=== PATIENT | female | born 1935 | race Caucasian/White ===

== ENCOUNTER → 2016-05-02 | Outpatient (CLI) | payer MEDICARE, OTHER ==
[2016-05-02 08:34] LABS: APPEARANCE,URINE CLEAR; BILIRUBIN,URINE NEGATIVE (NEGATIVE); GLUCOSE, URINE NEGATIVE (NEGATIVE); KETONES,URINE NEGATIVE (NEGATIVE); LEUKOCYTE ESTERASE,URINE SMALL (NEGATIVE); NITRITE,URINE NEGATIVE (NEGATIVE); PROTEIN,URINE NEGATIVE (NEGATIVE); URINE SPECIFIC GRAVITY 1.006; UROBILINOGEN,URINE NEGATIVE mg/dL (<2.0)
[2016-05-02 08:35] LABS: ABSOLUTE EOSINOPHILS # (AUTO) 0.2 10^3/uL (0.0-0.6); ABSOLUTE LYMPHOCYTES (AUTO) 1.4 10^3/uL (0.5-4.7); ABSOLUTE MONOCYTES (AUTO) 0.4 10^3/uL (0.1-1.4); ABSOLUTE NEUT (AUTO) 3.9 10^3/uL (1.7-8.2); BASOPHILS % (AUTO) 0.6 % (0-2); EOSINOPHILS % (AUTO) 2.7 % (0-6); HEMATOCRIT 36.3 % (36.0-47.0); HEMOGLOBIN 12.1 g/dL (12.0-15.5); LYMPHOCYTES % (AUTO) 24.2 % (13-45); MEAN CORPUSCULAR HEMOGLOBIN 28.9 pg (27.0-33.4); MEAN CORPUSCULAR HGB CONC 33.2 g/dL (32.0-36.0); MEAN CORPUSCULAR VOLUME 87 fl (80-97); MONOCYTES % (AUTO) 7.3 % (3-13); RED BLOOD COUNT 4.17 10^6/uL (3.72-5.28); RED CELL DISTRIBUTION WIDTH 13.1 % (11.5-14.0); SEGMENTED NEUTROPHILS % (AUTO) 65.2 % (42-78); WHITE BLOOD COUNT 5.9 10^3/uL (4.0-10.5)
[2016-05-02 09:02] LABS: ALANINE AMINOTRANSFERASE 27 U/L (9-52); ALBUMIN 4.2 g/dL (3.5-5.0); ALKALINE PHOSPHATASE 58 U/L (38-126); ANION GAP 9 (5-19); ASPARTATE AMINO TRANSFERASE 23 U/L (14-36); BILIRUBIN,TOTAL 0.7 mg/dL (0.2-1.3); BLOOD UREA NITROGEN 15 mg/dL (7-20); CARBON DIOXIDE 31 mmol/L (22-30); CHLORIDE 100 mmol/L (98-107); CHOLESTEROL 211.81 mg/dL (0-200); CREATININE RESULT 1.29 mg/dL (0.52-1.25); Direct HDL 57 mg/dL (>40); GLUCOSE 86 mg/dL (75-110); POTASSIUM 4.3 mmol/L (3.6-5.0); SODIUM 140.3 mmol/L (137-145); TOTAL PROTEIN 7.5 g/dL (6.3-8.2); TRIGLYCERIDES 249 mg/dL (<150); URIC ACID 6.7 mg/dL (2.5-7.5)
[2016-05-02 09:13] LABS: DIRECT LDL 114 mg/dL (<100); VLDL CHOLESTEROL 49.8 mg/dL (10-31)
[2016-05-02 09:27] LABS: THYROID STIMULATING HORMONE 2.21 uIU/mL (0.47-4.68)
[2016-05-03 11:39] LABS: CREATININE URINE 61.8 mg/dL (Not Estab.)
[2016-05-03 11:48] LABS: MICROALBUMIN URINE <3.0 ug/mL (Not Estab.)
== END ==
LOC: OD 07:19
PROVIDERS: ATTEND Internal Medicine
DX: I10 Essential (primary) hypertension (principal)
CPT/HCPCS: 36415; 80053; 80061; 81001; 82043; 82570; 84439; 84443; 84550; 85025

== ENCOUNTER 2017-01-15 08:20 | Emergency (ER) | payer MEDICARE, OTHER ==
[2017-01-15 09:02] LABS: APPEARANCE,URINE CLOUDY; BILIRUBIN,URINE NEGATIVE (NEGATIVE); GLUCOSE, URINE NEGATIVE (NEGATIVE); KETONES,URINE NEGATIVE (NEGATIVE); LEUKOCYTE ESTERASE,URINE LARGE (NEGATIVE); NITRITE,URINE NEGATIVE (NEGATIVE); PROTEIN,URINE 30 mg/dL (NEGATIVE); URINE SPECIFIC GRAVITY 1.008; UROBILINOGEN,URINE NEGATIVE mg/dL (<2.0)
[2017-01-15] MEDS ORDERED: CIPROFLOXACIN HCL 500 MG TABLET PO ONE (09:24)
--- NOTE | 2017-01-15 09:27 | ER Document Report ---
ED GI/ - General Chief Complaint: Pain With Urination Stated Complaint: POSSIBLE UTI Time Seen by Provider: 01/15/17 08:51 Mode of Arrival: Ambulatory Information source: Patient Notes: 81-year-old female presented to ED for urinary frequency urgency and discomfort. She states that usually when she feels like this she has a urinary tract infection. She states that she cannot quivers when she urinates. And this is her normal symptom for UTI. States that Dr. Cruz always gives her Cipro but she has not had it for more than a year. TRAVEL OUTSIDE OF THE [place] IN LAST 30 DAYS: No - HPI Patient complains to provider of: Other - Urinary urgency frequency and burning for 2 days Onset: Other - 2 days Timing/Duration: Gradual Quality of pain: Burning Severity at maximum: Mild Severity in ED: Mild Pain Level: 1 Associated symptoms: Urinary frequency, Urinary urgency, Other - Burning with urination Exacerbated by: Other - Urination Relieved by: Denies Similar symptoms previously: Yes Recently seen / treated by doctor: No - Related Data Allergies/Adverse Reactions: lisinopril [Lisinopril] Allergy (Verified 12/26/13 21:10) niacin Allergy (Verified 01/15/17 08:23) nitrofurantoin [From Macrobid] Allergy (Verified 12/26/13 21:10) nitrofurantoin macrocrystalline [From Macrobid] Allergy (Verified 12/26/13 21:10 ) Sulfa (Sulfonamide Antibiotics) Allergy (Verified 12/26/13 21:10) Past Medical History - General Information source: Patient - Social History Smoking Status: Never Smoker Cigarette use (# per day): No Chew tobacco use (# tins/day): No Smoking Education Provided: No Frequency of alcohol use: None Drug Abuse: None Lives with: Family Family History: CAD, Hyperlipidemia, Hypertension Patient has suicidal ideation: No Patient has homicidal ideation: No - Past Medical History Cardiac Medical History: Reports: Hx Hypercholesterolemia, Hx Hypertension, Other - Pericarditis with a pericardial window, pacemaker Pulmonary Medical History: Reports: None EENT Medical History: Reports: None Neurological Medical History: Reports: Other - Vertigo Endocrine Medical History: Reports: None Renal/ Medical History: Reports: Other - Urination Malignancy Medical History: Reports: Hx Skin Cancer GI Medical History: Reports: Hx Gastroesophageal Reflux Disease, Hx Colonoscopy , Hx Endoscopy, Other - Sluggish esophagus Musculoskeltal Medical History: Reports Hx Arthritis, Reports Hx Musculoskeletal Trauma Skin Medical History: Reports None Psychiatric Medical History: Reports: Other - Stressed Traumatic Medical History: Reports: Hx Fractures - Ankle Infectious Medical History: Reports: None Past Surgical History: Reports: Hx Cardiac Surgery - Pericardial window, Hx Cholecystectomy, Hx Pacemaker, Other - Cataract, skin cancer removed - Immunizations Immunizations up to date: Yes Hx Pneumococcal Vaccination: 04/03/12 Review of Systems - Review of Systems Constitutional: No symptoms reported EENT: No symptoms reported Cardiovascular: No symptoms reported Respiratory: No symptoms reported Gastrointestinal: No symptoms reported Genitourinary: Burning, Frequency, Urgency Female Genitourinary: No symptoms reported Musculoskeletal: No symptoms reported Skin: No symptoms reported Hematologic/Lymphatic: No symptoms reported Neurological/Psychological: No symptoms reported -: Yes All other systems reviewed and negative Physical Exam - Vital signs Vitals: Temp Pulse Resp BP Pulse Ox 97.4 F 83 20 177/92 H 97 01/15/17 08:23 01/15/17 08:23 01/15/17 08:23 01/15/17 08:23 01/15/17 08:23 Interpretation: Normal - General General appearance: Appears well, Alert - HEENT Head: Normocephalic, Atraumatic Eyes: Normal Pupils: PERRL - Respiratory Respiratory status: No respiratory distress Chest status: Nontender Breath sounds: Normal Chest palpation: Normal - Cardiovascular Rhythm: Regular Heart sounds: Normal auscultation Murmur: No - Abdominal Inspection: Normal Distension: No distension Bowel sounds: Normal Tenderness: Nontender. No: Tender Organomegaly: No organomegaly - Back Back: Normal, Nontender - Extremities General upper extremity: Normal inspection, Nontender, Normal color, Normal ROM , Normal temperature General lower extremity: Normal inspection, Nontender, Normal color, Normal ROM , Normal temperature, Normal weight bearing. No: Shana's sign - Neurological Neuro grossly intact: Yes Cognition: Normal Orientation: AAOx4 Liberal Coma Scale Eye Opening: Spontaneous Liberal Coma Scale Verbal: Oriented Liberal Coma Scale Motor: Obeys Commands Liberal Coma Scale Total: 15 Speech: Normal Motor strength normal: LUE, RUE, LLE, RLE Sensory: Normal - Psychological Associated symptoms: Normal affect, Normal mood - Skin Skin Temperature: Warm Skin Moisture: Dry Skin Color: Normal Course - Re-evaluation Re-evalutation: 01/15/17 20:50 Urine positive for urinary tract infection. Patient was treated with Cipro in the emergency room and sent home with a prescription for Cipro. Patient was encouraged to follow-up with Dr. Cruz tomorrow the next day to ensure that her symptoms are improving. Patient has been afebrile in the emergency room. - Vital Signs Vital signs: Temp Pulse Resp BP Pulse Ox 97.5 F 79 20 169/83 H 97 01/15/17 09:54 01/15/17 09:54 01/15/17 09:54 01/15/17 09:54 01/15/17 09:54 - Laboratory Laboratory results interpreted by me: 01/15/17 08:25 Urine Protein 30 H Urine Blood LARGE H Ur Leukocyte Esterase LARGE H Discharge - Discharge Clinical Impression: UTI (urinary tract infection) Qualifiers: Urinary tract infection type: site unspecified Hematuria presence: with hematuria Qualified Code(s): N39.0 - Urinary tract infection, site not specified Condition: Stable Disposition: HOME, SELF-CARE Additional Instructions: URINARY TRACT INFECTION: Your evaluation indicates that you have a urinary tract infection. This is due to germs growing in the bladder. This is a common problem. This infection usually responds quickly to antibiotics. Your antibiotic should be taken exactly as prescribed. Drink plenty of fluids -- three to four quarts a day. Occasionally, a bladder anesthetic will be prescribed to help stop the feeling of urgency until the antibiotic has a chance to clear the infection. This may cause your urine to be dark orange. Certain urine infections require a culture. If the doctor obtained a culture, the results will be back in two days. You should call to see if a change in treatment is needed. A repeat urinalysis after you finish treatment is often recommended. The physician will let you know if further testing is required. Call the doctor if you develop fever, chills, flank pain, inability to urinate, or blood in the urine. CIPROFLOXACIN: You have been given an antibacterial agent, ciprofloxacin (Cipro). This medicine is not related to the penicillins, sulfas, cephalosporins, or tetracyclines. It is often given to patients who are allergic to these drugs. It has been chosen for you either because other drugs are not appropriate, or because of the nature of your problem. Cipro should not be taken with antacids, as these can decrease its effectiveness. It can be taken without regard to meals. CIPRO SHOULD NOT BE TAKEN BY CHILDREN, NURSING WOMEN, OR WOMEN. Although Cipro is usually well-tolerated, common side effects can include nausea and diarrhea. Contact your doctor if you experience any unusual symptoms while on this medication, such as joint pain or swelling, shortness of breath, wheezing, faintness, or hives. FOLLOW-UP CARE: If you have been referred to a physician for follow-up care, call the physician s office for an appointment as you were instructed or within the next two days. If you experience worsening or a significant change in your symptoms, notify the physician immediately or return to the Emergency Department at any time for re-evaluation. Prescriptions: Ciprofloxacin HCl [Cipro 500 mg Tablet] 500 mg PO BID #20 tablet Referrals: ANGLE CRUZ MD [Primary Care Provider] - Follow up tomorrow
[2017-01-15 10:03] VITALS: BP 169/83
--- NOTE | 2017-01-15 10:06 | RADIOLOGY REPORT (SQ) ---
EXAM DESCRIPTION: CT LTD RENAL STONE PROTOCOL ON COMPLETED DATE/TIME: 01/15/2017 9:48 am REASON FOR STUDY: flank pain hematuria COMPARISON: CT abdomen pelvis 11/28/2009 CT chest 04/22/2015 TECHNIQUE: CT scan of the abdomen and pelvis performed without intravenous or oral contrast. Images reviewed with lung, soft tissue, and bone windows. Reconstructed coronal and sagittal MPR images revi ewed. All images stored on PACS. All CT scanners at this facility use dose modulation, iterative reconstruction, and/or weight based d osing when appropriate to reduce radiation dose to as low as reasonably achievable (ALARA). [facility]: Dose Right [facility]: CareDose [facility]: Dose Right [facility]: Teradose 4D [facility]: Smart The Resumator RADIATION DOSE: Up-to-date CT equipment and radiation dose reduction techniques were employed. CTDIv ol: 11.6 mGy. DLP: 608 mGy-cm.mGy. LIMITATIONS: None. FINDINGS: LOWER CHEST: There is having pericardial calcification without pericardial effusion, simil ar compared to previous exams. NON-CONTRASTED LIVER, SPLEEN, ADRENALS: Evaluation limited by lack of IV contrast. No identified sign ificant masses. PANCREAS: No masses. No peripancreatic inflammatory changes. GALLBLADDER: Surgically absent RIGHT KIDNEY AND URETER: No suspicious masses. Assessment limited by lack of IV contrast. No signif icant calcifications. No hydronephrosis or hydroureter. LEFT KIDNEY AND URETER: No suspicious masses. Assessment limited by lack of IV contrast. No signifi cant calcifications. No hydronephrosis or hydroureter. AORTA AND RETROPERITONEUM: Heavy atherosclerotic arterial vascular calcification without abdominal ao rtic aneurysm. BOWEL AND PERITONEAL CAVITY: No obvious masses or inflammatory changes. No free fluid. No oral contr ast. APPENDIX: Normal. PELVIS, BLADDER, AND ABDOMINAL WALL:No abnormal masses. No free fluid. Bladder normal. Uterus, ovari es unremarkable. BONES: No significant findings. OTHER: No other significant finding. IMPRESSION: No CT findings to explain history of hematuria. COMMENT: Quality ID # [id number]: Final reports with documentation of one or more dose reduction techniques (e.g., Automated exposure control, adjustment of the mA and/or kV according to patient size, use of iterative reconstruction technique) TECHNICAL DOCUMENTATION: JOB ID: [id number] All Rights Reserved
== END 2017-01-15 10:21 | disposition home or self-care (01) ==
LOC: ER 08:20
DX: N39.0 Urinary tract infection, site not specified (principal); R30.9 Painful micturition, unspecified; R39.15 Urgency of urination
CPT/HCPCS: 99284; 87086; 87088; 81001; 87186; 76380; A9270

== ENCOUNTER → 2017-04-26 | Outpatient (CLI) | payer MEDICARE, OTHER ==
[2017-04-26 08:14] LABS: APPEARANCE,URINE CLEAR; BILIRUBIN,URINE NEGATIVE (NEGATIVE); COLOR,URINE STRAW; GLUCOSE, URINE NEGATIVE (NEGATIVE); KETONES,URINE NEGATIVE (NEGATIVE); LEUKOCYTE ESTERASE,URINE TRACE (NEGATIVE); NITRITE,URINE NEGATIVE (NEGATIVE); PROTEIN,URINE NEGATIVE (NEGATIVE); URINE SPECIFIC GRAVITY 1.006; UROBILINOGEN,URINE NEGATIVE mg/dL (<2.0)
[2017-04-26 08:14] LABS: ABSOLUTE BASOPHILS # (AUTO) 0.1 10^3/uL (0.0-0.2); ABSOLUTE EOSINOPHILS # (AUTO) 0.2 10^3/uL (0.0-0.6); ABSOLUTE LYMPHOCYTES (AUTO) 1.7 10^3/uL (0.5-4.7); ABSOLUTE MONOCYTES (AUTO) 0.4 10^3/uL (0.1-1.4); ABSOLUTE NEUT (AUTO) 3.4 10^3/uL (1.7-8.2); BASOPHILS % (AUTO) 1.2 % (0-2); HEMATOCRIT 35.5 % (36.0-47.0); MEAN CORPUSCULAR HGB CONC 33.7 g/dL (32.0-36.0); MEAN CORPUSCULAR VOLUME 86 fl (80-97); MONOCYTES % (AUTO) 7.7 % (3-13); PLATELET COUNT 189 10^3/uL (150-450); RED BLOOD COUNT 4.13 10^6/uL (3.72-5.28); RED CELL DISTRIBUTION WIDTH 13.5 % (11.5-14.0); SEGMENTED NEUTROPHILS % (AUTO) 59.1 % (42-78); TOTAL CELLS COUNTED % (AUTO) 100 %; WHITE BLOOD COUNT 5.8 10^3/uL (4.0-10.5)
[2017-04-26 08:37] LABS: ALANINE AMINOTRANSFERASE 25 U/L (9-52); ALBUMIN 4.4 g/dL (3.5-5.0); ALKALINE PHOSPHATASE 51 U/L (38-126); ANION GAP 9 (5-19); ASPARTATE AMINO TRANSFERASE 23 U/L (14-36); BILIRUBIN,DIRECT 0.3 mg/dL (0.0-0.4); BILIRUBIN,TOTAL 0.5 mg/dL (0.2-1.3); BLOOD UREA NITROGEN 17 mg/dL (7-20); CARBON DIOXIDE 27 mmol/L (22-30); CHLORIDE 105 mmol/L (98-107); GLUCOSE 93 mg/dL (75-110); POTASSIUM 4.2 mmol/L (3.6-5.0); SODIUM 141.2 mmol/L (137-145); TOTAL PROTEIN 7.2 g/dL (6.3-8.2); TRIGLYCERIDES 462 mg/dL (<150)
[2017-04-26 08:45] LABS: CHOLESTEROL 380.59 mg/dL (0-200)
[2017-04-26 08:48] LABS: DIRECT LDL 181 mg/dL (<100)
[2017-04-26 08:51] LABS: FREE T4 (FREE THYROXINE) 0.94 ng/dL (0.78-2.19)
[2017-04-26 09:05] LABS: THYROID STIMULATING HORMONE 3.57 uIU/mL (0.47-4.68)
[2017-04-27 12:39] LABS: CREATININE URINE 65.1 mg/dL (Not Estab.)
[2017-04-27 13:12] LABS: MICROALBUMIN URINE <3.0 ug/mL (Not Estab.)
== END ==
LOC: OD 07:24
PROVIDERS: ATTEND Internal Medicine
DX: I10 Essential (primary) hypertension (principal)
CPT/HCPCS: 36415; 80053; 80061; 81001; 82043; 82570; 84439; 84443; 84550; 85025

== ENCOUNTER 2017-12-23 00:34 | Observation (INO) | payer MEDICARE, OTHER ==
[2017-12-23] MEDS ORDERED: IBUPROFEN 600 MG TABLET PO ONE (01:43)
[2017-12-23] MEDS ORDERED: ACETAMINOPHEN 325 MG TABLET PO ONE (01:43)
[2017-12-23] MEDS ORDERED: MAGNESIUM SULFATE/D5W 1 GM/100 ML RTUPB IV ONE ×2 (02:10→03:54)
[2017-12-23] MEDS ORDERED: RINGERS SOLUTION,LACTATED 500 ML IV ONE (02:11)
[2017-12-23] MEDS ORDERED: KETOROLAC TROMETHAMINE INJ/PF 30 MG/1 ML SDV IV ONE (02:14)
[2017-12-23] MEDS ORDERED: MORPHINE SULFATE 10 MG/ML INJ IV PRN (02:14)
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
[2017-12-23 03:25] LABS: ANION GAP 11 (5-19); BLOOD UREA NITROGEN 23 mg/dL (7-20); CALCIUM 9.5 mg/dL (8.4-10.2); CARBON DIOXIDE 25 mmol/L (22-30); CHLORIDE 96 mmol/L (98-107); GLUCOSE 94 mg/dL (75-110); POTASSIUM 4.1 mmol/L (3.6-5.0); SODIUM 131.9 mmol/L (137-145)
[2017-12-23 03:50] LABS: CREATINE KINASE 2148 U/L (30-135)
[2017-12-23 04:31] LABS: HEMATOCRIT 35.3 % (36.0-47.0); MEAN CORPUSCULAR HEMOGLOBIN 29.9 pg (27.0-33.4); MEAN CORPUSCULAR VOLUME 88 fl (80-97); PLATELET COUNT 189 10^3/uL (150-450); RED CELL DISTRIBUTION WIDTH 14.2 % (11.5-14.0); WHITE BLOOD COUNT 5.3 10^3/uL (4.0-10.5)
[2017-12-23 05:20] LABS: LIPASE 48.4 U/L (23-300)
[2017-12-23 05:33] LABS: CREATINE KINASE MB 22.2 ng/mL (<4.55); TROPONIN I 0.023 ng/mL
[2017-12-23 05:37] LABS: FREE T4 (FREE THYROXINE) 1.2 ng/dL (0.78-2.19)
[2017-12-23 05:51] LABS: THYROID STIMULATING HORMONE 2.74 uIU/mL (0.47-4.68)
[2017-12-23] MEDS: HEPARIN SOD (PORCINE) 5,000 UNIT/ML 1 ML SYRINGE SUBCUT SCH ×2 (06:13→16:16)
[2017-12-23] MEDS: NORMAL SALINE 1000 ML 1,000 ML IV PRN ×2 (06:14→22:49)
[2017-12-23 07:51] LABS: APPEARANCE,URINE CLEAR; BILIRUBIN,URINE NEGATIVE (NEGATIVE); COLOR,URINE YELLOW; GLUCOSE, URINE NEGATIVE (NEGATIVE); KETONES,URINE NEGATIVE (NEGATIVE); LEUKOCYTE ESTERASE,URINE SMALL (NEGATIVE); NITRITE,URINE NEGATIVE (NEGATIVE); PROTEIN,URINE NEGATIVE (NEGATIVE); URINE SPECIFIC GRAVITY 1.011; UROBILINOGEN,URINE NEGATIVE mg/dL (<2.0)
[2017-12-23 10:02] LABS: TROPONIN I 0.016 ng/mL
--- NOTE | 2017-12-23 12:42 | EKG REPORT ---
SEVERITY:- ABNORMAL ECG - ATRIAL-SENSED VENTRICULAR-PACED COMPLEXES FIRST DEGREE AV BLOCK NONSPECIFIC IVCD WITH LAD LVH WITH SECONDARY REPOLARIZATION ABNORMALITY : Confirmed by: Patrica Alicea MD 23-Dec-2017 12:41:21
[2017-12-23 15:55] LABS: TROPONIN I < 0.012 ng/mL
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
[2017-12-23] MEDS ORDERED: METOPROLOL SUCCINATE 25 MG TAB.SR.24H PO ONE ×2 (18:00→18:45)
[2017-12-23] MEDS ORDERED: VALSARTAN 80 MG TABLET PO ONE (18:00)
[2017-12-23] MEDS: APIXABAN 2.5 MG TABLET PO SCH (18:13)
[2017-12-23 18:25] LABS: ALANINE AMINOTRANSFERASE 35 U/L (9-52); ALBUMIN 3.6 g/dL (3.5-5.0); ALKALINE PHOSPHATASE 46 U/L (38-126); ANION GAP 8 (5-19); ASPARTATE AMINO TRANSFERASE 61 U/L (14-36); BILIRUBIN,DIRECT 0.4 mg/dL (0.0-0.4); BILIRUBIN,TOTAL 0.5 mg/dL (0.2-1.3); BLOOD UREA NITROGEN 21 mg/dL (7-20); CALCIUM 9.1 mg/dL (8.4-10.2); CARBON DIOXIDE 21 mmol/L (22-30); CHLORIDE 100 mmol/L (98-107); GLUCOSE 86 mg/dL (75-110); POTASSIUM 4.4 mmol/L (3.6-5.0); SODIUM 129.2 mmol/L (137-145); TOTAL PROTEIN 6.5 g/dL (6.3-8.2)
[2017-12-23] MEDS: HYDROCODONE/ACETAMINOPHEN 5-325 MG TABLET PO PRN (21:12)
[2017-12-23] MEDS ORDERED: LATANOPROST 0.005% OPH SOLN 2.5 ML OU SCH (22:00)
[2017-12-24] MEDS: HYDROCODONE/ACETAMINOPHEN 5-325 MG TABLET PO PRN (05:18)
[2017-12-24] MEDS: APIXABAN 2.5 MG TABLET PO SCH (05:18)
[2017-12-24] MEDS: NORMAL SALINE 1000 ML 1,000 ML IV PRN (05:23)
[2017-12-24 05:24] LABS: ABSOLUTE EOSINOPHILS # (AUTO) 0.1 10^3/uL (0.0-0.6); ABSOLUTE LYMPHOCYTES (AUTO) 1.5 10^3/uL (0.5-4.7); ABSOLUTE MONOCYTES (AUTO) 0.4 10^3/uL (0.1-1.4); ABSOLUTE NEUT (AUTO) 1.9 10^3/uL (1.7-8.2); EOSINOPHILS % (AUTO) 3.3 % (0-6); HEMATOCRIT 32.3 % (36.0-47.0); HEMOGLOBIN 10.9 g/dL (12.0-15.5); LYMPHOCYTES % (AUTO) 37.7 % (13-45); MEAN CORPUSCULAR HEMOGLOBIN 29.7 pg (27.0-33.4); MEAN CORPUSCULAR HGB CONC 33.7 g/dL (32.0-36.0); MEAN CORPUSCULAR VOLUME 88 fl (80-97); MONOCYTES % (AUTO) 10.2 % (3-13); PLATELET COUNT 158 10^3/uL (150-450); RED BLOOD COUNT 3.66 10^6/uL (3.72-5.28); RED CELL DISTRIBUTION WIDTH 14.1 % (11.5-14.0); SEGMENTED NEUTROPHILS % (AUTO) 47.8 % (42-78); TOTAL CELLS COUNTED % (AUTO) 100 %
[2017-12-24] MEDS ORDERED: LANSOPRAZOLE 30 MG TAB.RAP.DR PO SCH (06:00)
[2017-12-24 06:03] LABS: ANION GAP 6 (5-19); BLOOD UREA NITROGEN 18 mg/dL (7-20); CALCIUM 9.1 mg/dL (8.4-10.2); CARBON DIOXIDE 23 mmol/L (22-30); CHLORIDE 106 mmol/L (98-107); CHOLESTEROL 233.88 mg/dL (0-200); GLUCOSE 80 mg/dL (75-110); PHOSPHORUS 3.2 mg/dL (2.5-4.5); POTASSIUM 4.4 mmol/L (3.6-5.0); SODIUM 135.4 mmol/L (137-145); TRIGLYCERIDES 268 mg/dL (<150)
[2017-12-24 06:14] LABS: DIRECT LDL 131 mg/dL (<100)
[2017-12-24 06:18] LABS: VLDL CHOLESTEROL 53.6 mg/dL (10-31)
[2017-12-24] MEDS ORDERED: METOPROLOL SUCCINATE 25 MG TAB.SR.24H PO SCH ×2 (10:00)
[2017-12-24] MEDS ORDERED: VALSARTAN 80 MG TABLET PO SCH (10:00)
--- NOTE | 2017-12-24 13:08 | PDOC DISCHARGE SUMMARY ---
General - Admit/Disc Date/PCP Admission Date/Primary Care Provider: 12/23/17 04:08 ANGLE CRUZ MD Discharge Date: 12/24/17 - Discharge Diagnosis (1) Acute kidney injury Is this a current diagnosis for this admission?: Yes (2) Osteoarthritis of knees, bilateral Is this a current diagnosis for this admission?: Yes (3) Rhabdomyolysis Is this a current diagnosis for this admission?: Yes - Additional Information Resuscitation Status: Full Code Prescriptions: Hydrocodone/Acetaminophen [[place] 5-325 mg Tablet] 1 tab PO Q6H #28 tablet Home Medications: Apixaban [Eliquis 2.5 mg Tablet] 2.5 mg PO Q12 12/23/17 Diclofenac Sodium [Voltaren] 4 gm TOP Q12HP PRN 12/23/17 Latanoprost [Xalatan 0.005% Oph Soln 2.5 ml] 1 drop OU QHS 12/23/17 Metoprolol Succinate [Toprol Xl 25 mg Tab.sr] 25 mg PO DAILY 12/23/17 Omeprazole 40 mg PO ACBRKFST 12/23/17 Valsartan [Diovan 80 mg Tablet] 80 mg PO DAILY 12/23/17 Hydrocodone/Acetaminophen [[place] 5-325 mg Tablet] 1 tab PO Q6H #28 tablet History of Present Illness History of Present Illness: SUZE GARCIA is a 82 year old female, she has history of hypertension, severe osteoarthritis of the left knee she came to the emergency room for evaluation of severe muscle spasms in the left lower extremities, the pain was severe described as cramping, and emergency room she was evaluated she was found to have acute kidney injury, serum CPK was about 2000, rhabdomyolysis was suspected , the emergency room physician recommended inpatient care because of the acute kidney injury in the setting of rhabdomyolysis. She has severe osteoarthritis of both knees the left is worse than the right, she was supposed to be evaluated by orthopedic for possible knee replacement therapy but because of the inclement weather, she is yet to get appointment for the evaluation with orthopedic. Hospital Course Hospital Course: Patient was admitted for the management of acute kidney injury in the setting of rhabdomyolysis, she was treated with IV fluid normal saline with normalization of kidney function, on admission the serum CPK level was elevated , with hydration the CPK level as progressively decreased. Patient wants to go home, she feels better, she be discharged home today. She is encouraged to seek consultation with orthopedic regarding the need for knee replacement therapy Physical Exam Vital Signs: Temp Pulse Resp BP Pulse Ox 97.5 F 60 18 101/50 L 97 12/24/17 11:40 12/24/17 11:40 12/24/17 11:40 12/24/17 11:40 12/24/17 11:40 Intake & Output 12/23/17 12/24/17 12/25/17 06:59 06:59 06:59 Intake Total 100 2188 Output Total 400 Balance 100 1788 Weight 74.2 kg General appearance: PRESENT: no acute distress, well-developed, well-nourished Head exam: PRESENT: atraumatic, normocephalic Eye exam: PRESENT: conjunctiva pink, EOMI, PERRLA Ear exam: PRESENT: normal external ear exam Mouth exam: PRESENT: moist, tongue midline Neck exam: PRESENT: full ROM Respiratory exam: PRESENT: clear to auscultation liset Cardiovascular exam: PRESENT: RRR, +S1, +S2 Pulses: PRESENT: normal dorsalis pedis pul, +2 pedal pulses bilateral Vascular exam: PRESENT: normal capillary refill GI/Abdominal exam: PRESENT: normal bowel sounds, soft Rectal exam: PRESENT: deferred Neurological exam: PRESENT: alert, awake, oriented to person, oriented to place , oriented to time, oriented to situation, CN II-XII grossly intact Psychiatric exam: PRESENT: appropriate affect, normal mood Skin exam: PRESENT: dry, intact, warm Results Laboratory Results: 12/24/17 04:41 12/24/17 04:41 12/23/17 12/24/17 12/24/17 15:07 04:41 04:41 WBC 4.0 RBC 3.66 L Hgb 10.9 L Hct 32.3 L MCV 88 MCH 29.7 MCHC 33.7 RDW 14.1 H Plt Count 158 Seg Neutrophils % 47.8 Lymphocytes % 37.7 Monocytes % 10.2 Eosinophils % 3.3 Basophils % 1.0 Absolute Neutrophils 1.9 Absolute Lymphocytes 1.5 Absolute Monocytes 0.4 Absolute Eosinophils 0.1 Absolute Basophils 0.0 Sodium 129.2 L 135.4 L Potassium 4.4 4.4 Chloride 100 106 Carbon Dioxide 21 L 23 Anion Gap 8 6 BUN 21 H 18 Creatinine 1.19 1.03 Est GFR ( Amer) 53 L > 60 Est GFR (Non-Af Amer) 44 L 51 L Glucose 86 80 Calcium 9.1 9.1 Phosphorus 3.2 Magnesium 1.8 Total Bilirubin 0.5 AST 61 H ALT 35 Alkaline Phosphatase 46 Total Protein 6.5 Albumin 3.6 Triglycerides 268 H Cholesterol 233.88 H LDL Cholesterol Direct 131 H VLDL Cholesterol 53.6 H HDL Cholesterol 38 L 12/23/17 12/23/17 12/23/17 09:09 09:09 15:07 Creatine Kinase 1273 H 993 H CK-MB (CK-2) 15.00 H Troponin I 0.016 12/23/17 15:07 Creatine Kinase CK-MB (CK-2) 10.50 H Troponin I < 0.012 Qualifiers - * PATIENT BEING DISCHARGED WITH ANY OF THE FOLLOWING DIAGNOSIS: No
[2017-12-24 13:45] VITALS: BP 157/76
== END 2017-12-24 15:03 | disposition home or self-care (01) ==
LOC: ER 00:34 → OBSVTOIN 04:08 → INTOOBSV 04:08 → EH 04:08 → 3W 17:24
PROVIDERS: ADMIT Internal Medicine; ATTEND Internal Medicine
DX: N17.9 Acute kidney failure, unspecified (principal); M17.0 Bilateral primary osteoarthritis of knee; M62.82 Rhabdomyolysis; E83.42 Hypomagnesemia; M54.9 Dorsalgia, unspecified; M62.838 Other muscle spasm; Z79.899 Other long term (current) drug therapy; Z90.49 Acquired absence of other specified parts of digestive tract; Z95.0 Presence of cardiac pacemaker; Z82.49 Family history of ischemic heart disease and other diseases of the circulatory system; Z79.02 Long term (current) use of antithrombotics/antiplatelets
CPT/HCPCS: 93005; 99285; 96372; 96375; 96365; 96366; 36415 ×2; 87086; 84439; 82553; 82150; 82550; 83690; 83735 ×2; 84100; 84443; 85025; 85027; 87088; 83874; 80048 ×2; 80053; 81001; 84484; 87186; 83036; 80061; 93010; G0378 ×3; A9270 ×10; J1644; J1885; J3475; J3490

== ENCOUNTER → 2018-01-15 | Outpatient (CLI) | payer MEDICARE, OTHER ==
--- NOTE | 2018-01-15 09:18 | RADIOLOGY REPORT (SQ) ---
EXAM DESCRIPTION: CHEST PA/LATERAL COMPLETED DATE/TIME: 01/15/2018 9:03 am REASON FOR STUDY: PRE-OP COMPARISON: 12/26/2013 EXAM PARAMETERS: NUMBER OF VIEWS: two views TECHNIQUE: Digital Frontal and Lateral radiographic views of the chest acquired. RADIATION DOSE: NA LIMITATIONS: none FINDINGS: LUNGS AND PLEURA: No opacities, masses or pneumothorax. No pleural effusion. MEDIASTINUM AND HILAR STRUCTURES: No masses or contour abnormalities. HEART AND VASCULAR STRUCTURES: Heart normal size. No evidence for failure. BONES: No acute findings. HARDWARE: Sternotomy wires are in place. Battery pack and leads have been added since prior chest fi lm. Battery pack overlies the left hemithorax. Leads overlie the expected locations. OTHER: No other significant finding. IMPRESSION: NO SIGNIFICANT RADIOGRAPHIC FINDING IN THE CHEST. TECHNICAL DOCUMENTATION: JOB ID: [id number] [employer]- All Rights Reserved Reading location - IP/workstation name: [email or web address]
[2018-01-15 09:48] LABS: APPEARANCE,URINE CLEAR; BILIRUBIN,URINE NEGATIVE (NEGATIVE); COLOR,URINE STRAW; GLUCOSE, URINE NEGATIVE (NEGATIVE); KETONES,URINE NEGATIVE (NEGATIVE); LEUKOCYTE ESTERASE,URINE NEGATIVE (NEGATIVE); NITRITE,URINE NEGATIVE (NEGATIVE); PROTEIN,URINE NEGATIVE (NEGATIVE); URINE SPECIFIC GRAVITY 1.005; UROBILINOGEN,URINE NEGATIVE mg/dL (<2.0)
[2018-01-15 09:49] LABS: ABSOLUTE EOSINOPHILS # (AUTO) 0.1 10^3/uL (0.0-0.6); ABSOLUTE LYMPHOCYTES (AUTO) 1.3 10^3/uL (0.5-4.7); ABSOLUTE MONOCYTES (AUTO) 0.4 10^3/uL (0.1-1.4); ABSOLUTE NEUT (AUTO) 2.1 10^3/uL (1.7-8.2); EOSINOPHILS % (AUTO) 2.8 % (0-6); HEMATOCRIT 34.6 % (36.0-47.0); HEMOGLOBIN 11.8 g/dL (12.0-15.5); LYMPHOCYTES % (AUTO) 33.2 % (13-45); MEAN CORPUSCULAR HEMOGLOBIN 29.7 pg (27.0-33.4); MEAN CORPUSCULAR HGB CONC 34.1 g/dL (32.0-36.0); MEAN CORPUSCULAR VOLUME 87 fl (80-97); MONOCYTES % (AUTO) 10.4 % (3-13); PLATELET COUNT 193 10^3/uL (150-450); RED BLOOD COUNT 3.97 10^6/uL (3.72-5.28); RED CELL DISTRIBUTION WIDTH 13.6 % (11.5-14.0); SEGMENTED NEUTROPHILS % (AUTO) 52.6 % (42-78); TOTAL CELLS COUNTED % (AUTO) 100 %; WHITE BLOOD COUNT 3.9 10^3/uL (4.0-10.5)
[2018-01-15 11:04] LABS: ANION GAP 10 (5-19); BLOOD UREA NITROGEN 9 mg/dL (7-20); CALCIUM 9.5 mg/dL (8.4-10.2); CARBON DIOXIDE 27 mmol/L (22-30); CHLORIDE 102 mmol/L (98-107); GLUCOSE 92 mg/dL (75-110); POTASSIUM 4.8 mmol/L (3.6-5.0); SODIUM 138.7 mmol/L (137-145)
--- NOTE | 2018-01-15 13:40 | EKG REPORT ---
SEVERITY:- ABNORMAL ECG - VENTRICULAR-PACED COMPLEXES, NON DIAGNOSTIC. FIRST DEGREE AV BLOCK : Confirmed by: Bird Yeboah MD 15-Jan-2018 13:39:56
== END ==
LOC: OD 08:22
PROVIDERS: ATTEND Orthopaedic Surgery
DX: Z01.818 Encounter for other preprocedural examination (principal); M17.12 Unilateral primary osteoarthritis, left knee
CPT/HCPCS: 36415; 71046; 80048; 81001; 85025; 93005; 93010

== ENCOUNTER 2018-02-12 05:33 | Inpatient (IN) | payer MEDICARE, OTHER ==
[~2018-02-12 05:33] MED LIST: BUPIVACAINE INJ/PF LIPOSOME/PF 266 MG/20 ML SDV INJ PRN; CEFAZOLIN INJ 1 GM VIAL IV PRN; IBUPROFEN 800 MG in NORMAL SALINE 250 ML IV PRN; LACTATED RINGERS 1000 ML IV PRN; LANSOPRAZOLE 15 MG TAB.RAP.DR PO PRN; LIDOCAINE 0.5% INJ-PF (5 MG/ML) 50 ML SDV SUBCUT PRN; OXYCODONE HCL SR 10 MG TABLET PO PRN; VANCOMYCIN HCL 1,000 MG in DEXTROSE 5%-WATER 250 ML IV PRN
[2018-02-12] MEDS ORDERED: LANSOPRAZOLE 15 MG TAB.RAP.DR ONE (05:44)
[2018-02-12] MEDS ORDERED: CEFAZOLIN INJ 1 GM VIAL ONE (05:45)
[2018-02-12] MEDS ORDERED: OXYCODONE HCL SR 10 MG TABLET PO ONE (05:45)
[2018-02-12 06:30] LABS: INTERNATIONAL RATION (INR) 0.97; PROTHROMBIN TIME 13.4 SEC (11.4-15.4)
[2018-02-12] MEDS ORDERED: DEXAMETHASONE SOD PHOSPHATE INJ 4 MG/1 ML VIAL ONE (06:30)
[2018-02-12] MEDS ORDERED: FENTANYL CITRATE INJ/PF 100 MCG/2 ML AMPUL ONE (06:30)
[2018-02-12] MEDS ORDERED: ONDANSETRON HCL INJ/PF 4 MG/2 ML SDV ONE (06:30)
[2018-02-12] MEDS ORDERED: MIDAZOLAM 2 MG/2 ML INJ ONE (06:30)
[2018-02-12] MEDS ORDERED: LIDOCAINE 2% INJ-PF (20 MG/ML) 10 ML AMPUL ONE (06:30)
[2018-02-12 06:31] LABS: PARTIAL THROMBOPLASTIN TIME 41.9 SEC (23.5-35.8)
[2018-02-12] MEDS ORDERED: ACETAMINOPHEN 1,000 MG/100 ML RTUPB IV ONE ×2 (06:31→14:35)
[2018-02-12] MEDS ORDERED: PROPOFOL INJ 200 MG/20 ML VIAL IV ONE (06:31)
[2018-02-12] MEDS ORDERED: BUPIVACAINE HCL/DEX-WATER/PF 15 MG/2 ML AMPULE ONE (06:38)
[2018-02-12] MEDS ORDERED: THROMBIN (BOVINE) TOPICAL 5000 UNIT VIAL ONE (06:43)
[2018-02-12] MEDS ORDERED: BUPIVACAINE HCL 0.25% /EPINEPHRINE INJ/PF 30 ML SDV ONE (06:43)
[2018-02-12] MEDS ORDERED: ONDANSETRON HCL INJ/PF 4 MG/2 ML SDV IV PRN ×3 (08:02→15:00)
[2018-02-12] MEDS ORDERED: MORPHINE SULFATE 10 MG/ML INJ IV PRN ×5 (08:02→08:35)
[2018-02-12] MEDS ORDERED: DIPHENHYDRAMINE HCL 50 MG/ML VIAL IV PRN ×2 (08:02→08:35)
[2018-02-12] MEDS ORDERED: MEPERIDINE HCL/PF INJ 25 MG/1 ML DISP.SYRIN IV PRN (08:02)
[2018-02-12] MEDS ORDERED: FENTANYL CITRATE INJ/PF 100 MCG/2 ML AMPUL IV PRN ×3 (08:02)
[2018-02-12] MEDS ORDERED: PROMETHAZINE HCL INJ 25 MG/1 ML VIAL IV PRN ×2 (08:02)
[2018-02-12] MEDS ORDERED: ACETAMINOPHEN 500 MG PO PRN (08:35)
[2018-02-12] MEDS ORDERED: RINGERS SOLUTION,LACTATED 1,000 ML IV PRN (08:35)
[2018-02-12] MEDS ORDERED: MAG HYDROX/AL HYDROX/SIMETH SUSP 30 ML UDCUP PO PRN (08:35)
[2018-02-12] MEDS ORDERED: ONDANSETRON 4 MG TAB.RAPDIS PO PRN ×2 (08:35→15:00)
[2018-02-12] MEDS ORDERED: ZOLPIDEM TARTRATE 5 MG TABLET PO PRN (08:35)
[2018-02-12] MEDS ORDERED: ACETAMINOPHEN 325 MG TABLET PO PRN (08:35)
[2018-02-12] MEDS ORDERED: OXYCODONE HCL IR 5 MG TABLET PO PRN (08:35)
--- NOTE | 2018-02-12 08:35 | Operative Report ---
Operative Report DATE OF SURGERY: 02/12/18 PREOPERATIVE DIAGNOSIS: Left knee arthritis OPERATION: Left knee arthroplasty SURGEON: ROM ROBERSON ANESTHESIA: Spinal TISSUE REMOVED OR ALTERED: Bone to pathology ESTIMATED BLOOD LOSS: 100 PROCEDURE: Implants used: Femur: Dandy triathlon size 5 CR femur Tibia: 5 tibia Tibial liner: 11 mm CS spacer Patella: A 35 mm oval patella Procedure with the patient supine on the operating table the left the limb is prepped and draped in a sterile fashion. The limb was elevated for exsanguination and the tourniquet inflated to 280 torr. A standard midline median parapatellar approach the knee is taken. Access is gained to the femoral canal through the intercondylar notch. Intramedullary alignment instrumentation used to resect 10 mm of distal femur in 5 of valgus. Sizing guide indicated a size 5 femur. Appropriate cutting jig is then used to fashion anterior posterior and chamfer cuts. A trial reduction femurs performed and this is judged to be adequate. Attention was next turned to the tibia. Using an extra medullary alignment system 9 millimeters was resected off the lateral tibial plateau. This is sized to a size 5 tibia. A trial reduction was now performed with a 5 femur and a 5 tibia using a 11 millimeters spacer. It is full extension and central patellofemoral tracking. The articular surface the patella was next resected using an oscillating saw. All trial implants were removed. Polymethylmethacrylate is mixed and used to cement the above implants in place. On adequate curing the cement excess cement was removed the tourniquet was deflated hemostasis obtained the wound is then closed in layers using interrupted Vicryl followed by victor manuel. A sterile compressive dressing was applied and the patient returned to recovery room in satisfactory condition.
--- NOTE | 2018-02-12 09:52 | RADIOLOGY REPORT (SQ) ---
EXAM DESCRIPTION: KNEE LEFT 2 VIEWS COMPLETED DATE/TIME: 02/12/2018 9:34 am REASON FOR STUDY: Post OP -Long Cassette in PACU M17.12 UNILATERAL PRIMARY OSTEOARTHRITIS, LEFT KNE E COMPARISON: None. NUMBER OF VIEWS: Two view(s). TECHNIQUE: Digital radiographic images of the left knee post-procedure. LIMITATIONS: None. FINDINGS: BONES: No worrisome or unexpected findings post-procedure. DEVICE: Total knee arthroplasty. SOFT TISSUES: No worrisome findings. Expected postoperative soft tissue changes. IMPRESSION: 1. SATISFACTORY POSTOPERATIVE LEFT KNEE. TECHNICAL DOCUMENTATION: JOB ID: [id number] [employer]- All Rights Reserved Reading location - IP/workstation name: [email or web address]
[2018-02-12] MEDS ORDERED: OXYCODONE HCL SR 10 MG TABLET PO SCH (10:00)
[2018-02-12] MEDS ORDERED: TRANEXAMIC ACID INJ/PF 1,000 MG/10 ML SDV IV ONE ×2 (10:30)
[2018-02-12] MEDS: PREGABALIN 75 MG CAPSULE PO SCH ×2 (11:09→18:07)
[2018-02-12] MEDS: APIXABAN 2.5 MG TABLET PO SCH (11:10)
[2018-02-12] MEDS: SENNOSIDES/DOCUSATE 8.6-50 MG 1 EACH TABLET PO SCH ×2 (11:10→18:07)
[2018-02-12] MEDS: VALSARTAN 80 MG TABLET PO SCH (11:10)
[2018-02-12] MEDS: PRENATAL VITAMIN W DHA CAPSULE PO SCH (11:10)
[2018-02-12] MEDS ORDERED: IBUPROFEN 800 MG in NORMAL SALINE 250 ML IV SCH (14:00)
[2018-02-12] MEDS: IBUPROFEN 800 MG in DEXTROSE 5%-WATER 250 ML IV SCH ×2 (14:40→21:45)
[2018-02-12] MEDS ORDERED: VANCOMYCIN HCL 1,000 MG in DEXTROSE 5%-WATER 250 ML IV ONE (20:35)
[2018-02-12] MEDS: OXYCODONE HCL SR 10 MG TABLET PO SCH (21:45)
[2018-02-13 00:48] VITALS: BP 110/58
[2018-02-13] MEDS: IBUPROFEN 800 MG in DEXTROSE 5%-WATER 250 ML IV SCH (05:23)
[2018-02-13] MEDS ORDERED: LANSOPRAZOLE 30 MG TAB.RAP.DR PO SCH (06:00)
[2018-02-13 06:38] LABS: HEMATOCRIT 25.2 % (36.0-47.0); HEMOGLOBIN 8.7 g/dL (12.0-15.5); MEAN CORPUSCULAR HEMOGLOBIN 30.7 pg (27.0-33.4); MEAN CORPUSCULAR HGB CONC 34.6 g/dL (32.0-36.0); MEAN CORPUSCULAR VOLUME 89 fl (80-97); PLATELET COUNT 133 10^3/uL (150-450); RED BLOOD COUNT 2.84 10^6/uL (3.72-5.28); RED CELL DISTRIBUTION WIDTH 13.3 % (11.5-14.0); WHITE BLOOD COUNT 6.9 10^3/uL (4.0-10.5)
[2018-02-13 07:10] LABS: ANION GAP 13 (5-19); BLOOD UREA NITROGEN 13 mg/dL (7-20); CALCIUM 8.3 mg/dL (8.4-10.2); CARBON DIOXIDE 24 mmol/L (22-30); CHLORIDE 101 mmol/L (98-107); GLUCOSE 136 mg/dL (75-110); POTASSIUM 3.8 mmol/L (3.6-5.0); SODIUM 138.2 mmol/L (137-145)
--- NOTE | 2018-02-13 07:32 | PDOC DISCHARGE SUMMARY ---
General - Admit/Disc Date/PCP Admission Date/Primary Care Provider: 02/12/18 05:33 ANGLE CRUZ MD Discharge Date: 02/13/18 - Discharge Diagnosis (1) Arthritis of left knee Is this a current diagnosis for this admission?: Yes - Additional Information Resuscitation Status: Full Code Home Medications: Apixaban [Eliquis 2.5 mg Tablet] 5 mg PO Q12 12/23/17 Diclofenac Sodium [Voltaren] 4 gm TOP Q12HP PRN 12/23/17 Latanoprost [Xalatan 0.005% Oph Soln 2.5 ml] 1 drop OU QHS 12/23/17 Omeprazole 40 mg PO ACBRKFST 12/23/17 Valsartan [Diovan 80 mg Tablet] 80 mg PO DAILY 12/23/17 Acetaminophen [Tylenol] 500 mg PO Q6HP PRN 02/01/18 Cyclosporine 0.05% Oph Emulsio [Restasis 0.05% Opthalmic Droperette] 1 drop OU DAILY 02/12/18 History of Present Illness History of Present Illness: SUZE GARCIA is a 82 year old female 82-year-old white female with progressive bilateral knee pain left greater than right and associated functional disability. Patient is admitted for a left knee arthroplasty on an elective basis. Hospital Course Hospital Course: Patient is admitted through the operating where she undergoes uncomplicated left knee arthroplasty. She is returned to floor in satisfactory condition. She is seen by physical therapy makes excellent progress. Compressive dressing is taken down on postop day #1 followed by the underlying OpSite dressing. Wound is well approximated with victor maunel without erythema or drainage. Dressing is replaced. Physical Exam Vital Signs: Temp Pulse Resp BP Pulse Ox 36.9 C 69 15 110/58 L 97 02/13/18 00:00 02/13/18 00:00 02/13/18 00:00 02/13/18 00:00 02/13/18 00:00 Intake & Output 02/12/18 02/13/18 02/14/18 06:59 06:59 06:59 Intake Total 0 6556 Output Total 2500 Balance 0 4056 Weight 67.5 kg General appearance: PRESENT: no acute distress, well-nourished Head exam: PRESENT: normocephalic Respiratory exam: PRESENT: unlabored Cardiovascular exam: PRESENT: RRR Pulses: PRESENT: +1 pedal pulses bilateral GI/Abdominal exam: PRESENT: soft Rectal exam: PRESENT: deferred Extremities exam: PRESENT: other - Left knee dressing clean dry and intact. Distal neurovascular examination is intact. Neurological exam: PRESENT: alert, awake, oriented to person, oriented to place , oriented to time, oriented to situation, CN II-XII grossly intact. ABSENT: motor sensory deficit Psychiatric exam: PRESENT: appropriate affect, normal mood. ABSENT: homicidal ideation, suicidal ideation Skin exam: PRESENT: dry, intact, warm. ABSENT: cyanosis, rash Results Laboratory Results: 02/13/18 05:46 02/13/18 05:46 02/13/18 02/13/18 05:46 05:46 WBC 6.9 RBC 2.84 L Hgb 8.7 L Hct 25.2 L MCV 89 MCH 30.7 MCHC 34.6 RDW 13.3 Plt Count 133 L Sodium 138.2 Potassium 3.8 Chloride 101 Carbon Dioxide 24 Anion Gap 13 BUN 13 Creatinine 1.10 Est GFR ( Amer) 58 L Est GFR (Non-Af Amer) 48 L Glucose 136 H Calcium 8.3 L Impressions: Knee X-Ray 02/12/18 08:36 IMPRESSION: 1. SATISFACTORY POSTOPERATIVE LEFT KNEE. Status: Imported from PACS Qualifiers - * PATIENT BEING DISCHARGED WITH ANY OF THE FOLLOWING DIAGNOSIS: No VTE patient discharged on overlapping Therapy?: Yes Plan Discharge Plan: Patient to be discharged home with home health services and DME. Follow-up with Dr. Pepper Mendez Sheridan for surgery in 2 weeks for staple removal.
[2018-02-13] MEDS: VALSARTAN 80 MG TABLET PO SCH (09:59)
[2018-02-13] MEDS: APIXABAN 2.5 MG TABLET PO SCH (10:02)
[2018-02-13] MEDS: SENNOSIDES/DOCUSATE 8.6-50 MG 1 EACH TABLET PO SCH (10:03)
[2018-02-13] MEDS: OXYCODONE HCL SR 10 MG TABLET PO SCH (10:03)
[2018-02-13] MEDS: PRENATAL VITAMIN W DHA CAPSULE PO SCH (10:03)
[2018-02-13] MEDS: PREGABALIN 75 MG CAPSULE PO SCH (10:03)
== END 2018-02-13 10:28 | disposition home health service (06) | DRG 470 ==
LOC: INOR 05:33 → 4S 10:12
PROVIDERS: ADMIT Orthopaedic Surgery; ATTEND Orthopaedic Surgery
PROC: 0SRD0J9 Replacement of Left Knee Joint with Synthetic Substitute, Cemented, Open Approach (ICD-10-PCS; principal; 2018-02-12 07:30)
DX: M17.12 Unilateral primary osteoarthritis, left knee (principal); K21.9 Gastro-esophageal reflux disease without esophagitis; I10 Essential (primary) hypertension; I48.91 Unspecified atrial fibrillation; H40.9 Unspecified glaucoma; Z88.2 Allergy status to sulfonamides; Z88.8 Allergy status to other drugs, medicaments and biological substances; Z82.61 Family history of arthritis
CPT/HCPCS: 01402; 36415; 80048; 85027; 85610; 85730; 88305; 88311; 94799; C1713; C1776; G8978-GP; G8979-GP; G8987-GO; G8988-GO; J0131; J0690; J1100; J1741; J2250; J2405; J2704; J3010; J3370; J3490; J7050; J7060; J7120

== ENCOUNTER 2018-02-16 12:26 | Emergency (ER) | payer MEDICARE, OTHER ==
--- NOTE | 2018-02-16 13:30 | RADIOLOGY REPORT (SQ) ---
EXAM DESCRIPTION: ANKLE LEFT COMPLETE COMPLETED DATE/TIME: 02/16/2018 1:20 pm REASON FOR STUDY: post op pain hurts solid COMPARISON: None. NUMBER OF VIEWS: Three views. TECHNIQUE: AP, lateral, and oblique without weight bearing radiographic images acquired of the left ankle. LIMITATIONS: None. FINDINGS: MINERALIZATION: Generalized osteopenia BONES: No acute fracture or dislocation. No worrisome bone lesions. Dorsal osteophytes. JOINTS: No effusions. SOFT TISSUES: No soft tissue swelling. No foreign body. OTHER: No other significant finding. IMPRESSION: No acute findings. No explanation for pain. TECHNICAL DOCUMENTATION: JOB ID: [id number] [employer]- All Rights Reserved Reading location - IP/workstation name: [email or web address]
--- NOTE | 2018-02-16 13:31 | RADIOLOGY REPORT (SQ) ---
EXAM DESCRIPTION: KNEE LEFT 3 VIEWS COMPLETED DATE/TIME: 02/16/2018 1:20 pm REASON FOR STUDY: post op pain COMPARISON: 02/12/2018 NUMBER OF VIEWS: 3 view(s). TECHNIQUE: Digital radiographic images of the left knee post-procedure. LIMITATIONS: None. FINDINGS: BONES: No worrisome or unexpected findings post-procedure. DEVICE: Total knee arthroplasty. SOFT TISSUES: No worrisome findings. Expected postoperative soft tissue changes. IMPRESSION: SATISFACTORY POSTOPERATIVE LEFT KNEE. TECHNICAL DOCUMENTATION: JOB ID: [id number] [employer]- All Rights Reserved Reading location - IP/workstation name: [email or web address]
--- NOTE | 2018-02-16 17:31 | RADIOLOGY REPORT (SQ) ---
EXAM DESCRIPTION: VENOUS UNILATERAL LOWER COMPLETED DATE/TIME: 02/16/2018 5:12 pm REASON FOR STUDY: pain left leg / Hx clots COMPARISON: None. TECHNIQUE: Dynamic and static color[place] scale and color images acquired of the left leg venous system. Se lected spectral images acquired with additional compression and augmentation maneuvers. The contralat eral common femoral vein and saphenofemoral junction were also imaged. Images stored on PACS. LIMITATIONS: None. FINDINGS: COMMON FEMORAL: Normal phasicity, compression and augmentation. No visualized echogenic ma terial on color[place] scale. No defects on color images. FEMORAL: Normal compression and augmentation. No visualized echogenic material on colorado scale. No defe cts on color images. POPLITEAL: Normal compression, augmentation. No visualized echogenic material on colorado scale. No defec ts on color images. CALF VESSELS: Normal compression, augmentation. No visualized echogenic material on colorado scale. No de fects on color images. GSV and SSV: Normal compression, augmentation. No visualized echogenic material on color[place] scale. No def ects on color images. ANY DEEP VENOUS INSUFFICIENCY: Not evaluated. ANY EVIDENCE OF POPLITEAL CYST: No. OTHER: No other significant finding. CONTRALATERAL COMMON FEMORAL VEIN AND SAPHENOFEMORAL JUNCTION: Normal phasicity, compression and augmentation. No visualized echogenic material on [place] scale. No de fects on color images. IMPRESSION: NO EVIDENCE DVT OR SVT IN THE LEFT LEG. TECHNICAL DOCUMENTATION: JOB ID: [id number] [employer]- All Rights Reserved Reading location - IP/workstation name: [email or web address]
[2018-02-16] MEDS ORDERED: LIDOCAINE 5% (700 MG) TRANSDERMAL ADH..PATCH TP ONE (17:48)
--- NOTE | 2018-02-16 17:49 | ER Document Report ---
ED General - General Chief Complaint: Knee Pain Stated Complaint: POST SURGICAL KNEE PAIN Time Seen by Provider: 02/16/18 12:42 TRAVEL OUTSIDE OF THE [place] IN LAST 30 DAYS: No - HPI Patient complains to provider of: Knee pain Notes: Patient coming for evaluation of left knee pain. Patient recent surgery to her left hip due to her fracture. Patient's postop day 3. Patient states now having significant pain in her ankle difficult time ambulating because of the pain patient denies any fever chills nausea vomiting diarrhea. Patient has not followed up with her postop surgeon Dr. Pabon at this time. Also concerned about some redness along the wound site. - Related Data Allergies/Adverse Reactions: lisinopril [Lisinopril] Allergy (Verified 01/22/18 15:06) niacin Allergy (Verified 01/22/18 15:06) nitrofurantoin [From Macrobid] Allergy (Verified 01/22/18 15:06) nitrofurantoin macrocrystalline [From Macrobid] Allergy (Verified 01/22/18 15:06 ) Sulfa (Sulfonamide Antibiotics) Allergy (Verified 01/22/18 15:06) Past Medical History - Social History Smoking Status: Unknown if Ever Smoked Family History: CAD, Hyperlipidemia, Hypertension Patient has suicidal ideation: No Patient has homicidal ideation: No - Past Medical History Cardiac Medical History: Reports: Hx Hypercholesterolemia, Hx Hypertension Denies: Hx Atrial Fibrillation, Hx Congestive Heart Failure, Hx Coronary Artery Disease, Hx Heart Attack, Hx Peripheral Vascular Disease, Hx Heart Murmur Pulmonary Medical History: Denies: Hx Asthma, Hx Bronchitis, Hx COPD, Hx Sleep Apnea Neurological Medical History: Denies: Hx Cerebrovascular Accident, Hx Seizures Endocrine Medical History: Denies: Hx Hyperthyroidism, Hx Hypothyroidism Renal/ Medical History: Denies: Hx End Stage Renal Disease, Hx Kidney Stones, Hx Peritoneal Dialysis Malignancy Medical History: Reports: Hx Skin Cancer. Denies: Hx Leukemia GI Medical History: Reports: Hx Gastroesophageal Reflux Disease, Hx Colonoscopy , Hx Endoscopy. Denies: Hx Crohn's Disease, Hx Hiatal Hernia, Hx Irritable Bowel, Hx Liver Failure, Hx Pancreatitis, Hx Ulcer Musculoskeletal Medical History: Reports Hx Arthritis - knees, generalized, Denies Hx Fibromyalgia, Denies Hx Muscular Dystrophy, Reports Hx Musculoskeletal Trauma Psychiatric Medical History: Denies: Hx Bipolar Disorder, Hx Depression, Hx Post Traumatic Stress Disorder Traumatic Medical History: Reports: Hx Fractures - left ankle Infectious Medical History: Denies: Hx HIV Past Surgical History: Reports: Hx Cardiac Surgery - Pericardial window, Hx Cholecystectomy, Hx Pacemaker - medtronic placed 09/13/2015, Other - Cataract, skin cancer removed. Denies: Hx Appendectomy, Hx Bowel Surgery, Hx Section, Hx Colostomy, Hx Gastric Bypass Surgery, Hx Herniorrhaphy, Hx Hysterectomy, Hx Mastectomy, Hx Tonsillectomy, Hx Tubal Ligation. 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 - Immunizations Immunizations up to date: Yes Hx Pneumococcal Vaccination: 04/03/12 Review of Systems - Review of Systems Constitutional: No symptoms reported EENT: No symptoms reported Cardiovascular: No symptoms reported Respiratory: No symptoms reported Gastrointestinal: No symptoms reported Genitourinary: No symptoms reported Female Genitourinary: No symptoms reported Musculoskeletal: Other - Left knee ankle pain Skin: No symptoms reported Hematologic/Lymphatic: No symptoms reported Neurological/Psychological: No symptoms reported Physical Exam - Vital signs Vitals: Temp Pulse Resp BP Pulse Ox 99.1 F 86 18 155/77 H 100 02/16/18 12:40 02/16/18 12:40 02/16/18 12:40 02/16/18 12:40 02/16/18 12:40 Interpretation: Normal - General General appearance: Appears well, Alert - HEENT Head: Normocephalic, Atraumatic Eyes: Normal Pupils: PERRL - Respiratory Respiratory status: No respiratory distress Chest status: Nontender Breath sounds: Normal Chest palpation: Normal - Cardiovascular Rhythm: Regular Heart sounds: Normal auscultation Murmur: No - Abdominal Inspection: Normal Distension: No distension Bowel sounds: Normal Tenderness: Nontender Organomegaly: No organomegaly - Back Back: Normal, Nontender - Extremities General upper extremity: Normal inspection, Nontender, Normal color, Normal ROM , Normal temperature General lower extremity: Tender, Normal color, Normal ROM, Normal temperature, Other - Left knee postsurgical victor manuel dressing in place unable to evaluate through the Tegaderm minimal redness around staple site no signs of purulent drainage no signs of an at this time. Patient does have significant tenderness to palpation of the lateral malleolus no tenderness of the fibular head.. No: Normal inspection, Shana's sign - Neurological Neuro grossly intact: Yes Cognition: Normal Orientation: AAOx4 Marcus Coma Scale Eye Opening: Spontaneous Marcus Coma Scale Verbal: Oriented [place] Coma Scale Motor: Obeys Commands Marcus Coma Scale Total: 15 Speech: Normal Motor strength normal: LUE, RUE, LLE, RLE Sensory: Normal - Psychological Associated symptoms: Normal affect, Normal mood - Skin Skin Temperature: Warm Skin Moisture: Dry Skin Color: Normal Course - Re-evaluation Re-evalutation: 02/16/18 18:[address] Stewart x-rays are negative recommend ultrasound for rule out DVT Doppler is negative. Patient will be discharged home recommend lidocaine patches continue with her pain medication at home also recommend Johnnie wrap to the ankle for support more likely underlying contusion pain from having is with surgery. - Vital Signs Vital signs: Temp Pulse Resp BP Pulse Ox 99.5 F 83 18 129/62 H 98 02/16/18 18:16 02/16/18 18:16 02/16/18 18:16 02/16/18 18:16 02/16/18 18:16 Discharge - Discharge Clinical Impression: Ankle pain Qualifiers: Chronicity: acute Laterality: left Qualified Code(s): M25.572 - Pain in left ankle and joints of left foot Condition: Good Disposition: HOME, SELF-CARE Instructions: Johnnie Wrap ([facility]), Ice & Elevation ([facility]) Additional Instructions: Your evaluation does not show any signs of a fracture or a blood clot causing your pain. Examination of your incision looks to be more reactive no signs of infection. I did discuss your case with Dr. Stewart orthopedics on-call recommend calling the office on Monday to follow-up next weeks. Please continue to take your pain medication as prescribed. Would recommend using also lidocaine patches to help out with the pain in your ankle. We will give you an Johnnie wrap to help give you more support of your ankle more likely the pain is due from the actual surgery possible underlying contusions. Return to ER if symptoms worsen. Referrals: ANGLE CRUZ MD [Primary Care Provider] - Follow up as needed
[2018-02-16 18:30] VITALS: BP 129/62
== END 2018-02-16 18:30 | disposition home or self-care (01) ==
LOC: ER 12:26
DX: M25.572 Pain in left ankle and joints of left foot (principal); M25.562 Pain in left knee; I10 Essential (primary) hypertension; Z98.890 Other specified postprocedural states; Z88.8 Allergy status to other drugs, medicaments and biological substances; Z88.1 Allergy status to other antibiotic agents; Z88.2 Allergy status to sulfonamides; Z85.828 Personal history of other malignant neoplasm of skin
CPT/HCPCS: 93971; 99284

== ENCOUNTER 2018-02-28 14:00 | Observation (INO) | payer MEDICARE, OTHER ==
[2018-02-28] MEDS ORDERED: POTASSIUM CHLORIDE IV PRN ×2 (14:40)
[2018-02-28] MEDS ORDERED: NORMAL SALINE IV PRN ×2 (14:40)
[2018-02-28 15:28] LABS: HEMATOCRIT 27.2 % (36.0-47.0); HEMOGLOBIN 9.2 g/dL (12.0-15.5); MEAN CORPUSCULAR HGB CONC 33.9 g/dL (32.0-36.0); MEAN CORPUSCULAR VOLUME 86 fl (80-97); PLATELET COUNT 312 10^3/uL (150-450); RED BLOOD COUNT 3.18 10^6/uL (3.72-5.28); RED CELL DISTRIBUTION WIDTH 13.2 % (11.5-14.0); WHITE BLOOD COUNT 5.8 10^3/uL (4.0-10.5)
[2018-02-28 15:38] LABS: ALANINE AMINOTRANSFERASE 22 U/L (9-52); ALBUMIN 3.6 g/dL (3.5-5.0); ALKALINE PHOSPHATASE 61 U/L (38-126); ANION GAP 14 (5-19); ASPARTATE AMINO TRANSFERASE 26 U/L (14-36); BILIRUBIN,DIRECT 0.4 mg/dL (0.0-0.4); BILIRUBIN,TOTAL 0.8 mg/dL (0.2-1.3); BLOOD UREA NITROGEN 14 mg/dL (7-20); CALCIUM 9.2 mg/dL (8.4-10.2); CARBON DIOXIDE 27 mmol/L (22-30); CHLORIDE 100 mmol/L (98-107); GLUCOSE 104 mg/dL (75-110); POTASSIUM 3.1 mmol/L (3.6-5.0); SODIUM 140.8 mmol/L (137-145); TOTAL PROTEIN 6.5 g/dL (6.3-8.2)
--- NOTE | 2018-02-28 16:11 | RADIOLOGY REPORT (SQ) ---
EXAM DESCRIPTION: CHEST 2 VIEWS COMPLETED DATE/TIME: 02/28/2018 3:48 pm REASON FOR STUDY: VOMITING CONSTIPATION COMPARISON: CT chest 04/22/2015 Chest films 12/26/2013, 11/30/2009 EXAM PARAMETERS: NUMBER OF VIEWS: two views TECHNIQUE: Digital Frontal and Lateral radiographic views of the chest acquired. RADIATION DOSE: NA LIMITATIONS: none FINDINGS: LUNGS AND PLEURA: No opacities, masses or pneumothorax. No pleural effusion. MEDIASTINUM AND HILAR STRUCTURES: No masses or contour abnormalities. HEART AND VASCULAR STRUCTURES: Old sternotomy and CABG. Very heavily calcified pericardium along the dorsal heart border, stable BONES: No acute findings. HARDWARE: Left-sided dual lead pacemaker. Clips right upper quadrant post cholecystectomy OTHER: No other significant finding. IMPRESSION: NO ACUTE RADIOGRAPHIC FINDING IN THE CHEST. TECHNICAL DOCUMENTATION: JOB ID: [id number] [employer]- All Rights Reserved Reading location - IP/workstation name: [email or web address]
[2018-02-28] MEDS: POTASSI CL 40 MEQ/NS 1L 1,000 ML IV PRN (16:12)
--- NOTE | 2018-02-28 16:18 | RADIOLOGY REPORT (SQ) ---
EXAM DESCRIPTION: CT ABD/PELVIS NO ORAL OR IV COMPLETED DATE/TIME: 02/28/2018 4:00 pm REASON FOR STUDY: VOMITING, CONSTIPATION R11.10 VOMITING, UNSPECIFIED R10.9 UNSPECIFIED ABDOMINAL PAIN COMPARISON: CT abdomen pelvis 01/15/2017, 11/28/2009 TECHNIQUE: CT scan of the abdomen and pelvis performed without intravenous or oral contrast. Images reviewed with lung, soft tissue, and bone windows. Reconstructed coronal and sagittal MPR images revi ewed. All images stored on PACS. All CT scanners at this facility use dose modulation, iterative reconstruction, and/or weight based d osing when appropriate to reduce radiation dose to as low as reasonably achievable (ALARA). [facility]: Dose Right [facility]: CareDose [facility]: Dose Right [facility]: Teradose 4D [facility]: Smart Cocodot RADIATION DOSE: CT Rad equipment meets quality standard of care and radiation dose reduction techniq ues were employed. CTDIvol: 4.6 mGy. DLP: 257 mGy-cm.mGy. LIMITATIONS: None. FINDINGS: LOWER CHEST: Pericardial calcifications, CABG with pacemaker. Lung bases are clear NON-CONTRASTED LIVER, SPLEEN, ADRENALS: Evaluation limited by lack of IV contrast. No identified sign ificant masses. PANCREAS: No masses. No peripancreatic inflammatory changes. GALLBLADDER: Surgically absent RIGHT KIDNEY AND URETER: No suspicious masses. Assessment limited by lack of IV contrast. No signif icant calcifications. No hydronephrosis or hydroureter. LEFT KIDNEY AND URETER: No suspicious masses. Assessment limited by lack of IV contrast. No signifi cant calcifications. No hydronephrosis or hydroureter. AORTA AND RETROPERITONEUM: No aneurysm. No retroperitoneal masses or adenopathy. BOWEL AND PERITONEAL CAVITY: No CT evidence of bowel obstruction or free intraperitoneal air or fluid . No colonic diverticulosis. APPENDIX: Normal. PELVIS, BLADDER, AND ABDOMINAL WALL:No abnormal masses. No free fluid. Bladder normal. Normal size f emale pelvic organs BONES: No significant findings. OTHER: No other significant finding. IMPRESSION: NO SIGNIFICANT OR ACUTE PROCESS IN THE ABDOMEN OR PELVIS. COMMENT: Quality ID # [id number]: Final reports with documentation of one or more dose reduction techniques (e.g., Automated exposure control, adjustment of the mA and/or kV according to patient size, use of iterative reconstruction technique) TECHNICAL DOCUMENTATION: JOB ID: [id number]- All Rights Reserved Reading location - IP/workstation name: [email or web address]
[2018-02-28 17:24] LABS: APPEARANCE,URINE SLIGHTLY-CLOUDY; BILIRUBIN,URINE NEGATIVE (NEGATIVE); COLOR,URINE YELLOW; GLUCOSE, URINE NEGATIVE (NEGATIVE); KETONES,URINE TRACE mg/dL (NEGATIVE); LEUKOCYTE ESTERASE,URINE MODERATE (NEGATIVE); NITRITE,URINE NEGATIVE (NEGATIVE); PROTEIN,URINE NEGATIVE (NEGATIVE)
--- NOTE | 2018-02-28 17:55 | PDOC H&P ---
History of Present Illness Admission Date/PCP: 02/28/18 14:00 ANGLE CRUZ MD History of Present Illness: SUZE GARCIA is a 82 year old female, She came to the office today for evaluation of persistent vomiting constipation, she recently had left knee arthroplasty about 2 weeks ago, pain control was achieved with opioid, she is very upset because she said she had no bowel movement for 7 days.She denies any urinary symptoms, there is no dysuria, urgency ,the urinalysis was positive for leukocyte esterase.There was pyuria, no bacteriuria, I do not know what to make of these. The CAT scan of the abdomen and pelvis was done, it was negative for any acute pathology. Patient was very upset in the office crying, making statements like this is not me ,am not feeling well. 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: Yes Medication/Allergy Home Medications: Apixaban [Eliquis 2.5 mg Tablet] 5 mg PO Q12 12/23/17 Diclofenac Sodium [Voltaren] 4 gm TOP Q12HP PRN 12/23/17 Latanoprost [Xalatan 0.005% Oph Soln 2.5 ml] 1 drop OU QHS 12/23/17 Omeprazole 40 mg PO ACBRKFST 12/23/17 Valsartan [Diovan 80 mg Tablet] 80 mg PO DAILY 12/23/17 Acetaminophen [Tylenol] 500 mg PO Q6HP PRN 02/01/18 Cyclosporine 0.05% Oph Emulsio [Restasis 0.05% Opthalmic Droperette] 1 drop OU DAILY 02/12/18 Lubiprostone [Amitiza 24 Mcg Capsule] 24 mcg PO BIDBS 02/28/18 Allergies/Adverse Reactions: lisinopril [Lisinopril] Allergy (Verified 01/22/18 15:06) niacin Allergy (Verified 01/22/18 15:06) nitrofurantoin [From Macrobid] Allergy (Verified 01/22/18 15:06) Sulfa (Sulfonamide Antibiotics) Allergy (Verified 01/22/18 15:06) Review of Systems Constitutional: PRESENT: fatigue Eyes: ABSENT: visual disturbances Ears: ABSENT: hearing changes Cardiovascular: ABSENT: chest pain, dyspnea on exertion, edema, orthropnea, palpitations Respiratory: ABSENT: cough, hemoptysis Gastrointestinal: PRESENT: abdominal pain, vomiting Genitourinary: ABSENT: dysuria, hematuria Integumentary: ABSENT: rash, wounds Neurological: ABSENT: abnormal gait, abnormal speech, confusion, dizziness, focal weakness, syncope Psychiatric: ABSENT: anxiety, depression, homidical ideation, suicidal ideation Endocrine: ABSENT: cold intolerance, heat intolerance, menstrual abnormalities, polydipsia, polyuria Hematologic/Lymphatic: ABSENT: easy bleeding, easy bruising, lymphadenopathy Physical Exam Vital Signs: Temp Pulse Resp BP Pulse Ox 97.8 F 69 17 143/63 H 93 02/28/18 14:57 02/28/18 14:57 02/28/18 14:57 02/28/18 14:57 02/28/18 14:57 Intake & Output 02/27/18 02/28/18 03/01/18 06:59 06:59 06:59 Weight 67.5 kg Head exam: PRESENT: atraumatic, normocephalic Eye exam: PRESENT: PERRLA Ear exam: PRESENT: normal external ear exam Mouth exam: PRESENT: dry mucosa Neck exam: PRESENT: full ROM Respiratory exam: PRESENT: clear to auscultation liset Cardiovascular exam: PRESENT: RRR, +S1, +S2 Vascular exam: PRESENT: normal capillary refill GI/Abdominal exam: PRESENT: normal bowel sounds, soft Rectal exam: PRESENT: deferred Neurological exam: PRESENT: alert, CN II-XII grossly intact Skin exam: PRESENT: dry, intact, warm Results Laboratory Results: 02/28/18 15:04 02/28/18 15:04 02/28/18 02/28/18 02/28/18 15:04 15:04 16:54 WBC 5.8 RBC 3.18 L Hgb 9.2 L Hct 27.2 L MCV 86 MCH 29.0 MCHC 33.9 RDW 13.2 Plt Count 312 Sodium 140.8 Potassium 3.1 L Chloride 100 Carbon Dioxide 27 Anion Gap 14 BUN 14 Creatinine 1.43 H Est GFR ( Amer) 43 L Est GFR (Non-Af Amer) 35 L Glucose 104 Calcium 9.2 Total Bilirubin 0.8 AST 26 ALT 22 Alkaline Phosphatase 61 Total Protein 6.5 Albumin 3.6 Urine Color YELLOW Urine Appearance SLIGHTLY-CLOUDY Urine pH 7.0 Ur Specific [place] 1.010 Urine Protein NEGATIVE Urine Glucose (UA) NEGATIVE Urine Ketones TRACE H Urine Blood NEGATIVE Urine Nitrite NEGATIVE Ur Leukocyte Esterase MODERATE H Urine WBC (Auto) 13 Urine RBC (Auto) 1 Impressions: Abdomen/Pelvis CT 02/28/18 14:26 IMPRESSION: NO SIGNIFICANT OR ACUTE PROCESS IN THE ABDOMEN OR PELVIS. Chest X-Ray 02/28/18 14:26 IMPRESSION: NO ACUTE RADIOGRAPHIC FINDING IN THE CHEST. Assessment & Plan - Diagnosis (1) Hypokalemia Is this a current diagnosis for this admission?: Yes Plan: The hypokalemia is most likely from GI loss from vomiting, this will be replenished with IV fluid (2) Vomiting Qualifiers: Vomiting type: unspecified Vomiting Intractability: intractable Nausea presence: with nausea Qualified Code(s): R11.2 - Nausea with vomiting, unspecified Is this a current diagnosis for this admission?: Yes Plan: The exact etiology is not clear
[2018-02-28] MEDS ORDERED: ONDANSETRON HCL INJ/PF 4 MG/2 ML SDV ONE (19:44)
[2018-02-28] MEDS: ONDANSETRON HCL INJ/PF 4 MG/2 ML SDV IV PRN (20:18)
[2018-03-01] MEDS: POTASSI CL 40 MEQ/NS 1L 1,000 ML IV PRN ×2 (02:11→18:43)
[2018-03-01] MEDS: DICYCLOMINE HCL 20 MG TABLET PO PRN ×2 (13:30→22:04)
[2018-03-01 14:58] LABS: ALANINE AMINOTRANSFERASE 15 U/L (9-52); ALKALINE PHOSPHATASE 71 U/L (38-126); ANION GAP 12 (5-19); ASPARTATE AMINO TRANSFERASE 25 U/L (14-36); BILIRUBIN,DIRECT 0.2 mg/dL (0.0-0.4); BILIRUBIN,TOTAL 0.6 mg/dL (0.2-1.3); BLOOD UREA NITROGEN 12 mg/dL (7-20); CALCIUM 9.4 mg/dL (8.4-10.2); CARBON DIOXIDE 24 mmol/L (22-30); CHLORIDE 106 mmol/L (98-107); GLUCOSE 129 mg/dL (75-110); SODIUM 142.4 mmol/L (137-145); TOTAL PROTEIN 7.1 g/dL (6.3-8.2)
[2018-03-01 15:11] LABS: POTASSIUM 4.1 mmol/L (3.6-5.0)
[2018-03-01] MEDS ORDERED: ACETAMINOPHEN 500 MG PO PRN (19:23)
[2018-03-01] MEDS ORDERED: ACETAMINOPHEN 325 MG TABLET PO PRN (19:26)
--- NOTE | 2018-03-01 20:11 | PDOC PROGRESS REPORT ---
Subjective Progress Note for:: 03/01/18 Subjective:: Patient was admitted yesterday for the management of hypokalemia in the setting of persistent vomiting, she looks much better today she is no more vomiting now she has diarrhea with abdominal cramps Reason For Visit: VOMITING Physical Exam Vital Signs: Temp Pulse Resp BP Pulse Ox 98.5 F 64 17 137/57 H 98 03/01/18 19:25 03/01/18 19:25 03/01/18 19:25 03/01/18 19:25 03/01/18 19:25 Intake & Output 02/28/18 03/01/18 03/02/18 06:59 06:59 06:59 Intake Total 1098 1236 Output Total 200 Balance 898 1236 Weight 66.2 kg General appearance: PRESENT: no acute distress Eye exam: PRESENT: PERRLA Respiratory exam: PRESENT: clear to auscultation liset Cardiovascular exam: PRESENT: +S1, +S2 GI/Abdominal exam: PRESENT: soft Neurological exam: PRESENT: alert Results Laboratory Results: 02/28/18 15:04 03/01/18 14:15 03/01/18 14:15 Sodium 142.4 Potassium 4.1 D Chloride 106 Carbon Dioxide 24 Anion Gap 12 BUN 12 Creatinine 1.24 Est GFR ( Amer) 50 L Est GFR (Non-Af Amer) 42 L Glucose 129 H Calcium 9.4 Total Bilirubin 0.6 AST 25 ALT 15 Alkaline Phosphatase 71 Total Protein 7.1 Albumin 4.0 Impressions: Abdomen/Pelvis CT 02/28/18 14:26 IMPRESSION: NO SIGNIFICANT OR ACUTE PROCESS IN THE ABDOMEN OR PELVIS. Chest X-Ray 02/28/18 14:26 IMPRESSION: NO ACUTE RADIOGRAPHIC FINDING IN THE CHEST. Assessment & Plan - Diagnosis (1) Hypokalemia Is this a current diagnosis for this admission?: Yes (2) Vomiting Qualifiers: Vomiting type: unspecified Vomiting Intractability: intractable Nausea presence: with nausea Qualified Code(s): R11.2 - Nausea with vomiting, unspecified Is this a current diagnosis for this admission?: Yes
[2018-03-01] MEDS ORDERED: APIXABAN 2.5 MG TABLET PO SCH (22:00)
[2018-03-01] MEDS ORDERED: LATANOPROST 0.005% OPH SOLN 2.5 ML OU SCH (22:00)
[2018-03-01] MEDS: APIXABAN 5 MG TABLET PO SCH (22:04)
[2018-03-02] MEDS: POTASSI CL 40 MEQ/NS 1L 1,000 ML IV PRN ×2 (04:34→14:59)
[2018-03-02] MEDS ORDERED: LANSOPRAZOLE 30 MG TAB.RAP.DR PO SCH (08:00)
[2018-03-02] MEDS: DICYCLOMINE HCL 20 MG TABLET PO PRN (08:19)
[2018-03-02] MEDS ORDERED: CYCLOSPORINE 0.05% OPH EMULSIO 0.4 ML DROPERETTE OU SCH (10:00)
[2018-03-02] MEDS ORDERED: VALSARTAN 80 MG TABLET PO SCH (10:00)
[2018-03-02] MEDS: APIXABAN 5 MG TABLET PO SCH (10:21)
[2018-03-02 14:23] LABS: ABSOLUTE BASOPHILS # (AUTO) 0.1 10^3/uL (0.0-0.2); ABSOLUTE EOSINOPHILS # (AUTO) 0.2 10^3/uL (0.0-0.6); ABSOLUTE LYMPHOCYTES (AUTO) 0.9 10^3/uL (0.5-4.7); ABSOLUTE MONOCYTES (AUTO) 0.5 10^3/uL (0.1-1.4); ABSOLUTE NEUT (AUTO) 3.1 10^3/uL (1.7-8.2); BASOPHILS % (AUTO) 1.7 % (0-2); EOSINOPHILS % (AUTO) 4.2 % (0-6); HEMATOCRIT 23.8 % (36.0-47.0); LYMPHOCYTES % (AUTO) 19.2 % (13-45); MEAN CORPUSCULAR HGB CONC 33.4 g/dL (32.0-36.0); MEAN CORPUSCULAR VOLUME 87 fl (80-97); MONOCYTES % (AUTO) 9.8 % (3-13); PLATELET COUNT 210 10^3/uL (150-450); RED BLOOD COUNT 2.74 10^6/uL (3.72-5.28); RED CELL DISTRIBUTION WIDTH 13.5 % (11.5-14.0); SEGMENTED NEUTROPHILS % (AUTO) 65.1 % (42-78); TOTAL CELLS COUNTED % (AUTO) 100 %; WHITE BLOOD COUNT 4.8 10^3/uL (4.0-10.5)
[2018-03-02 14:51] LABS: ALANINE AMINOTRANSFERASE 17 U/L (9-52); ALBUMIN 3.4 g/dL (3.5-5.0); ALKALINE PHOSPHATASE 61 U/L (38-126); ANION GAP 13 (5-19); ASPARTATE AMINO TRANSFERASE 23 U/L (14-36); BILIRUBIN,DIRECT 0.2 mg/dL (0.0-0.4); BILIRUBIN,TOTAL 0.4 mg/dL (0.2-1.3); BLOOD UREA NITROGEN 9 mg/dL (7-20); CARBON DIOXIDE 20 mmol/L (22-30); CHLORIDE 110 mmol/L (98-107); GLUCOSE 86 mg/dL (75-110); POTASSIUM 4.8 mmol/L (3.6-5.0); SODIUM 142.7 mmol/L (137-145); TOTAL PROTEIN 6.3 g/dL (6.3-8.2)
[2018-03-02] MEDS: ONDANSETRON HCL INJ/PF 4 MG/2 ML SDV IV PRN (14:58)
[2018-03-02 16:48] VITALS: BP 144/66
--- NOTE | 2018-03-02 19:36 | PDOC DISCHARGE SUMMARY ---
General - Admit/Disc Date/PCP Admission Date/Primary Care Provider: 02/28/18 14:00 ANGLE CRUZ MD Discharge Date: 03/02/18 - Discharge Diagnosis (1) Hypokalemia Is this a current diagnosis for this admission?: Yes (2) Vomiting Is this a current diagnosis for this admission?: Yes - Additional Information Discharge Diet: As Tolerated, Regular Discharge Activity: Activity As Tolerated Prescriptions: Mirtazapine [Remeron 15 mg Tablet] 7.5 mg PO QHS #30 tablet Home Medications: Apixaban [Eliquis 2.5 mg Tablet] 5 mg PO Q12 12/23/17 Diclofenac Sodium [Voltaren] 4 gm TOP Q12HP PRN 12/23/17 Latanoprost [Xalatan 0.005% Oph Soln 2.5 ml] 1 drop OU QHS 12/23/17 Omeprazole 40 mg PO ACBRKFST 12/23/17 Valsartan [Diovan 80 mg Tablet] 80 mg PO DAILY 12/23/17 Acetaminophen [Tylenol] 500 mg PO Q6HP PRN 02/01/18 Cyclosporine 0.05% Oph Emulsio [Restasis 0.05% Oph Emulsion Pf 0.4 ml] 1 drop OU DAILY 02/12/18 Mirtazapine [Remeron 15 mg Tablet] 7.5 mg PO QHS #30 tablet 03/02/18 History of Present Illness History of Present Illness: SUZE GARCIA is a 82 year old female, She came to the office today for evaluation of persistent vomiting constipation, she recently had left knee arthroplasty about 2 weeks ago, pain control was achieved with opioid, she is very upset because she said she had no bowel movement for 7 days.She denies any urinary symptoms, there is no dysuria, urgency ,the urinalysis was positive for leukocyte esterase.There was pyuria, no bacteriuria, I do not know what to make of these. The CAT scan of the abdomen and pelvis was done, it was negative for any acute pathology. Patient was very upset in the office crying, making statements like this is not me ,am not feeling well. Hospital Course Hospital Course: She was admitted for the management of persistent vomiting associated with hypokalemia, the exact etiology of the vomiting is not clear, she was also constipated associated with opioid use, the potassium was replaced, she was given IV fluid for rehydration she felt much better. She was brought in for observation Physical Exam Vital Signs: Temp Pulse Resp BP Pulse Ox 97.7 F 66 18 144/66 H 98 03/02/18 16:43 03/02/18 16:43 03/02/18 16:43 03/02/18 16:43 03/02/18 16:43 Intake & Output 03/01/18 03/02/18 03/03/18 06:59 06:59 06:59 Intake Total 1098 2339 1298 Output Total 200 Balance 898 2339 1298 Weight 66.2 kg 66.4 kg General appearance: PRESENT: no acute distress, well-developed, well-nourished Head exam: PRESENT: atraumatic, normocephalic Eye exam: PRESENT: conjunctiva pink, EOMI, PERRLA Ear exam: PRESENT: normal external ear exam Mouth exam: PRESENT: moist, tongue midline Neck exam: PRESENT: full ROM Respiratory exam: PRESENT: clear to auscultation liset Cardiovascular exam: PRESENT: RRR, +S1, +S2 Pulses: PRESENT: normal dorsalis pedis pul, +2 pedal pulses bilateral Vascular exam: PRESENT: normal capillary refill GI/Abdominal exam: PRESENT: normal bowel sounds, soft Rectal exam: PRESENT: deferred Neurological exam: PRESENT: alert, awake, oriented to person, oriented to place , oriented to time, oriented to situation, CN II-XII grossly intact Psychiatric exam: PRESENT: appropriate affect, normal mood Skin exam: PRESENT: dry, intact, warm Results Laboratory Results: 03/02/18 14:09 03/02/18 14:09 03/02/18 03/02/18 14:09 14:09 WBC 4.8 RBC 2.74 L Hgb 8.0 L Hct 23.8 L MCV 87 MCH 29.0 MCHC 33.4 RDW 13.5 Plt Count 210 Seg Neutrophils % 65.1 Lymphocytes % 19.2 Monocytes % 9.8 Eosinophils % 4.2 Basophils % 1.7 Absolute Neutrophils 3.1 Absolute Lymphocytes 0.9 Absolute Monocytes 0.5 Absolute Eosinophils 0.2 Absolute Basophils 0.1 Sodium 142.7 Potassium 4.8 Chloride 110 H Carbon Dioxide 20 L Anion Gap 13 BUN 9 Creatinine 1.02 Est GFR ( Amer) > 60 Est GFR (Non-Af Amer) 52 L Glucose 86 Calcium 9.0 Total Bilirubin 0.4 AST 23 ALT 17 Alkaline Phosphatase 61 Total Protein 6.3 Albumin 3.4 L 02/28/18 16:54 Clean Catch Midstream Urine Culture - Final Mixed Urogenital Aga Impressions: Abdomen/Pelvis CT 02/28/18 14:26 IMPRESSION: NO SIGNIFICANT OR ACUTE PROCESS IN THE ABDOMEN OR PELVIS. Chest X-Ray 02/28/18 14:26 IMPRESSION: NO ACUTE RADIOGRAPHIC FINDING IN THE CHEST. Qualifiers - * PATIENT BEING DISCHARGED WITH ANY OF THE FOLLOWING DIAGNOSIS: No
== END 2018-03-02 17:50 | disposition home or self-care (01) ==
LOC: 4S 14:00
PROVIDERS: ADMIT Internal Medicine; ATTEND Internal Medicine
DX: R11.2 Nausea with vomiting, unspecified (principal); E87.6 Hypokalemia; N39.0 Urinary tract infection, site not specified; K59.03 Drug induced constipation; T40.2X5A Adverse effect of other opioids, initial encounter; Z96.652 Presence of left artificial knee joint; I10 Essential (primary) hypertension; R19.7 Diarrhea, unspecified; R10.9 Unspecified abdominal pain; K21.9 Gastro-esophageal reflux disease without esophagitis; Z79.02 Long term (current) use of antithrombotics/antiplatelets; Z79.899 Other long term (current) drug therapy; Z95.1 Presence of aortocoronary bypass graft; Z85.828 Personal history of other malignant neoplasm of skin; Z90.49 Acquired absence of other specified parts of digestive tract; Z95.0 Presence of cardiac pacemaker
CPT/HCPCS: 36415 ×3; 87086; 85025; 85027; 80076; 80048; 80053 ×2; 81001; 71046; 74176; G0378 ×3; G0379; A9270 ×4; J2405 ×2; J3480 ×3; J3490

== ENCOUNTER → 2018-05-10 | Outpatient (CLI) | payer MEDICARE, OTHER ==
[2018-05-10 08:57] LABS: ABSOLUTE BASOPHILS # (AUTO) 0.1 10^3/uL (0.0-0.2); ABSOLUTE EOSINOPHILS # (AUTO) 0.1 10^3/uL (0.0-0.6); ABSOLUTE LYMPHOCYTES (AUTO) 1.3 10^3/uL (0.5-4.7); ABSOLUTE MONOCYTES (AUTO) 0.4 10^3/uL (0.1-1.4); ABSOLUTE NEUT (AUTO) 3.6 10^3/uL (1.7-8.2); EOSINOPHILS % (AUTO) 2.5 % (0-6); HEMOGLOBIN 11.9 g/dL (12.0-15.5); LYMPHOCYTES % (AUTO) 23.6 % (13-45); MEAN CORPUSCULAR HEMOGLOBIN 27.9 pg (27.0-33.4); MEAN CORPUSCULAR HGB CONC 33.2 g/dL (32.0-36.0); MEAN CORPUSCULAR VOLUME 84 fl (80-97); MONOCYTES % (AUTO) 7.8 % (3-13); PLATELET COUNT 179 10^3/uL (150-450); RED BLOOD COUNT 4.28 10^6/uL (3.72-5.28); RED CELL DISTRIBUTION WIDTH 14.6 % (11.5-14.0); SEGMENTED NEUTROPHILS % (AUTO) 65.1 % (42-78); TOTAL CELLS COUNTED % (AUTO) 100 %; WHITE BLOOD COUNT 5.6 10^3/uL (4.0-10.5)
[2018-05-10 09:18] LABS: APPEARANCE,URINE SLIGHTLY-CLOUDY; BILIRUBIN,URINE NEGATIVE (NEGATIVE); COLOR,URINE YELLOW; GLUCOSE, URINE NEGATIVE (NEGATIVE); KETONES,URINE NEGATIVE (NEGATIVE); LEUKOCYTE ESTERASE,URINE NEGATIVE (NEGATIVE); NITRITE,URINE NEGATIVE (NEGATIVE); PROTEIN,URINE NEGATIVE (NEGATIVE); URINE SPECIFIC GRAVITY 1.011; UROBILINOGEN,URINE NEGATIVE mg/dL (<2.0)
[2018-05-10 09:18] LABS: ALANINE AMINOTRANSFERASE < 6 U/L (9-52); ALBUMIN 4.7 g/dL (3.5-5.0); ALKALINE PHOSPHATASE 53 U/L (38-126); ANION GAP 12 (5-19); ASPARTATE AMINO TRANSFERASE 21 U/L (14-36); BILIRUBIN,DIRECT 0.3 mg/dL (0.0-0.4); BILIRUBIN,TOTAL 0.7 mg/dL (0.2-1.3); BLOOD UREA NITROGEN 15 mg/dL (7-20); CALCIUM 10.1 mg/dL (8.4-10.2); CARBON DIOXIDE 27 mmol/L (22-30); CHLORIDE 103 mmol/L (98-107); GLUCOSE 89 mg/dL (75-110); POTASSIUM 4.3 mmol/L (3.6-5.0); SODIUM 142.1 mmol/L (137-145); TOTAL PROTEIN 7.7 g/dL (6.3-8.2); TRIGLYCERIDES 419 mg/dL (<150); URIC ACID 5.8 mg/dL (2.5-7.5)
[2018-05-10 09:29] LABS: DIRECT LDL 188 mg/dL (<100)
[2018-05-10 09:33] LABS: CHOLESTEROL 384.64 mg/dL (0-200)
[2018-05-10 09:34] LABS: FREE T4 (FREE THYROXINE) 0.82 ng/dL (0.78-2.19)
[2018-05-10 09:48] LABS: THYROID STIMULATING HORMONE 3.61 uIU/mL (0.47-4.68)
== END ==
LOC: OD 07:23
PROVIDERS: ATTEND Internal Medicine
DX: I10 Essential (primary) hypertension (principal)
CPT/HCPCS: 36415; 80053; 80061; 81001; 84439; 84443; 84550; 85025

== ENCOUNTER → 2019-08-23 | Outpatient (CLI) | payer MEDICARE, OTHER ==
[2019-08-23 08:47] LABS: ABSOLUTE BASOPHILS # (AUTO) 0.1 10^3/uL (0.0-0.2); ABSOLUTE EOSINOPHILS # (AUTO) 0.1 10^3/uL (0.0-0.6); ABSOLUTE LYMPHOCYTES (AUTO) 1.2 10^3/uL (0.5-4.7); ABSOLUTE MONOCYTES (AUTO) 0.5 10^3/uL (0.1-1.4); BASOPHILS % (AUTO) 1.2 % (0-2); EOSINOPHILS % (AUTO) 2.2 % (0-6); HEMATOCRIT 33.3 % (36.0-47.0); HEMOGLOBIN 11.6 g/dL (12.0-15.5); LYMPHOCYTES % (AUTO) 25.3 % (13-45); MEAN CORPUSCULAR HEMOGLOBIN 29.9 pg (27.0-33.4); MEAN CORPUSCULAR HGB CONC 34.7 g/dL (32.0-36.0); MEAN CORPUSCULAR VOLUME 86 fl (80-97); MONOCYTES % (AUTO) 9.7 % (3-13); PLATELET COUNT 173 10^3/uL (150-450); RED BLOOD COUNT 3.87 10^6/uL (3.72-5.28); RED CELL DISTRIBUTION WIDTH 13.7 % (11.5-14.0); SEGMENTED NEUTROPHILS % (AUTO) 61.6 % (42-78); TOTAL CELLS COUNTED % (AUTO) 100 %; WHITE BLOOD COUNT 4.9 10^3/uL (4.0-10.5)
[2019-08-23 08:52] LABS: APPEARANCE,URINE CLEAR; BILIRUBIN,URINE NEGATIVE (NEGATIVE); COLOR,URINE YELLOW; GLUCOSE, URINE NEGATIVE (NEGATIVE); KETONES,URINE NEGATIVE (NEGATIVE); LEUKOCYTE ESTERASE,URINE TRACE (NEGATIVE); NITRITE,URINE NEGATIVE (NEGATIVE); PROTEIN,URINE NEGATIVE (NEGATIVE); URINE SPECIFIC GRAVITY 1.012; UROBILINOGEN,URINE NEGATIVE mg/dL (<2.0)
[2019-08-23 09:12] LABS: ALBUMIN 4.5 g/dL (3.5-5.0); ALKALINE PHOSPHATASE 68 U/L (38-126); ANION GAP 11 (5-19); ASPARTATE AMINO TRANSFERASE 23 U/L (14-36); BILIRUBIN,TOTAL 0.4 mg/dL (0.2-1.3); BLOOD UREA NITROGEN 22 mg/dL (7-20); CALCIUM 9.8 mg/dL (8.4-10.2); CARBON DIOXIDE 25 mmol/L (22-30); CHLORIDE 100 mmol/L (98-107); GLUCOSE 93 mg/dL (75-110); POTASSIUM 4.4 mmol/L (3.6-5.0); TOTAL PROTEIN 7.6 g/dL (6.3-8.2); URIC ACID 5.4 mg/dL (2.5-7.5)
[2019-08-23 09:23] LABS: DIRECT LDL 169 mg/dL (<100)
[2019-08-23 09:26] LABS: FREE T4 (FREE THYROXINE) 0.92 ng/dL (0.78-2.19)
[2019-08-23 09:29] LABS: CHOLESTEROL 391.41 mg/dL (0-200); TRIGLYCERIDES 614 mg/dL (<150)
[2019-08-23 09:40] LABS: THYROID STIMULATING HORMONE 3.19 uIU/mL (0.47-4.68)
== END ==
LOC: OD 07:30
PROVIDERS: ATTEND Internal Medicine
DX: I10 Essential (primary) hypertension (principal); Z13.1 Encounter for screening for diabetes mellitus; Z79.899 Other long term (current) drug therapy
CPT/HCPCS: 36415; 80053; 80061; 81001; 83036; 84439; 84443; 84550; 85025

== ENCOUNTER → 2019-11-25 | Outpatient (CLI) | payer MEDICARE, OTHER ==
[2019-11-25 08:28] LABS: ABSOLUTE BASOPHILS # (AUTO) 0.1 10^3/uL (0.0-0.2); ABSOLUTE EOSINOPHILS # (AUTO) 0.1 10^3/uL (0.0-0.6); ABSOLUTE LYMPHOCYTES (AUTO) 1.4 10^3/uL (0.5-4.7); ABSOLUTE MONOCYTES (AUTO) 0.4 10^3/uL (0.1-1.4); ABSOLUTE NEUT (AUTO) 3.1 10^3/uL (1.7-8.2); BASOPHILS % (AUTO) 1.4 % (0-2); EOSINOPHILS % (AUTO) 1.6 % (0-6); HEMATOCRIT 35.1 % (36.0-47.0); HEMOGLOBIN 12.3 g/dL (12.0-15.5); LYMPHOCYTES % (AUTO) 27.2 % (13-45); MEAN CORPUSCULAR HEMOGLOBIN 30.2 pg (27.0-33.4); MEAN CORPUSCULAR HGB CONC 35.1 g/dL (32.0-36.0); MEAN CORPUSCULAR VOLUME 86 fl (80-97); MONOCYTES % (AUTO) 7.3 % (3-13); PLATELET COUNT 220 10^3/uL (150-450); RED BLOOD COUNT 4.09 10^6/uL (3.72-5.28); RED CELL DISTRIBUTION WIDTH 12.9 % (11.5-14.0); SEGMENTED NEUTROPHILS % (AUTO) 62.5 % (42-78); TOTAL CELLS COUNTED % (AUTO) 100 %
[2019-11-25 09:04] LABS: APPEARANCE,URINE CLEAR; BILIRUBIN,URINE NEGATIVE (NEGATIVE); COLOR,URINE STRAW; GLUCOSE, URINE NEGATIVE (NEGATIVE); KETONES,URINE NEGATIVE (NEGATIVE); LEUKOCYTE ESTERASE,URINE TRACE (NEGATIVE); NITRITE,URINE NEGATIVE (NEGATIVE); PROTEIN,URINE NEGATIVE (NEGATIVE); URINE SPECIFIC GRAVITY 1.008; UROBILINOGEN,URINE NEGATIVE mg/dL (<2.0)
[2019-11-25 09:11] LABS: ALBUMIN 4.8 g/dL (3.5-5.0); ALKALINE PHOSPHATASE 57 U/L (38-126); ANION GAP 8 (5-19); ASPARTATE AMINO TRANSFERASE 27 U/L (14-36); BILIRUBIN,DIRECT 0.4 mg/dL (0.0-0.4); BILIRUBIN,TOTAL 0.9 mg/dL (0.2-1.3); BLOOD UREA NITROGEN 18 mg/dL (7-20); CALCIUM 10.4 mg/dL (8.4-10.2); CARBON DIOXIDE 27 mmol/L (22-30); CHLORIDE 101 mmol/L (98-107); CHOLESTEROL 248.55 mg/dL (0-200); GLUCOSE 89 mg/dL (75-110); POTASSIUM 4.2 mmol/L (3.6-5.0); TRIGLYCERIDES 383 mg/dL (<150); URIC ACID 5.7 mg/dL (2.5-7.5)
[2019-11-25 09:22] LABS: DIRECT LDL 128 mg/dL (<100)
[2019-11-25 09:29] LABS: VLDL CHOLESTEROL 76.6 mg/dL (10-31)
[2019-11-25 10:41] LABS: FREE T4 (FREE THYROXINE) 0.99 ng/dL (0.78-2.19)
[2019-11-25 10:55] LABS: THYROID STIMULATING HORMONE 2.04 uIU/mL (0.47-4.68)
== END ==
LOC: OD 07:38
PROVIDERS: ATTEND Internal Medicine
DX: I10 Essential (primary) hypertension (principal)
CPT/HCPCS: 36415; 80053; 80061; 81001; 84439; 84443; 84550; 85025